=== PATIENT | female | born 1985 | race Caucasian/White ===

== ENCOUNTER 2017-09-25 13:35 | Emergency (ER) | payer MEDICAID ==
[2017-09-25] MEDS ORDERED: DIPHENHYDRAMINE HCL 50 MG/ML VIAL IV ONE (14:16)
[2017-09-25] MEDS ORDERED: PROCHLORPERAZINE EDISYLATE INJ 10 MG/2 ML VIAL IV ONE (14:16)
[2017-09-25] MEDS ORDERED: ONDANSETRON HCL INJ/PF 4 MG/2 ML SDV IV ONE (14:16)
[2017-09-25] MEDS ORDERED: NORMAL SALINE 1000 ML 1,000 ML IV ONE (14:17)
--- NOTE | 2017-09-25 14:21 | ER Document Report ---
ED Medical Screen (RME) - General Mode of Arrival: Ambulatory Information source: Patient TRAVEL OUTSIDE OF THE [place] IN LAST 30 DAYS: No <SOBEIDA CATALAN - Last Filed: 09/25/17 14:42> <VINH DUMONT - Last Filed: 09/25/17 19:29> - General Chief Complaint: High Blood Pressure Stated Complaint: BLOOD PRESSURE ISSUE Time Seen by Provider: 09/25/17 14:11 Notes: Patient is a 32 year old female presenting to the emergency department complaining of dizziness onset last night. Patient states she was feeling very dizzy last night and fell down repeatedly so she decided to check her blood pressure which she found to be high. Patient states she contiuned to check her blood pressure 2 more times throughout the night and found it to be high. Patient states she still feels dizzy with associated symptoms of headaches, diarrhea, nausea, shaking, and light headedness. I have greeted and performed a rapid initial assessment of this patient. A comprehensive ED assessment and evaluation of the patient, analysis of test results and completion of the medical decision making process will be conducted by additional ED providers. (SOBEIDA CATALAN) - Related Data Allergies/Adverse Reactions: No Known Allergies Allergy (Unverified 04/03/16 09:08) Home Medications: Current Home Medications Alprazolam [Xanax 0.25 mg Tablet] 1 tab PO BID PRN 09/25/17 [History] Dulaglutide [Trulicity] 1 dose SQ Q7D 09/25/17 [History] Eszopiclone [Lunesta] 1 tab PO DAILY 09/25/17 [History] Insulin Aspart Prot/Insuln Asp [Novolog Mix 70-30 Flexpen Syrn] 10 units SQ DAILY 09/25/17 [History] Lisinopril 1 tab PO DAILY 09/25/17 [History] Trazodone HCl [Desyrel] 1 tab PO BID 09/25/17 [History] Past Medical History - General Information source: Patient - Social History Frequency of alcohol use: None Drug Abuse: None - Past Medical History Cardiac Medical History: Reports: Hx Hypertension Pulmonary Medical History: Endocrine Medical History: Reports: Hx Diabetes Mellitus Type 2 Psychiatric Medical History: Reports: Hx Bipolar Disorder, Hx Depression - Immunizations Hx Diphtheria, Pertussis, Tetanus Vaccination: Yes <SOBEIDA CATALAN - Last Filed: 09/25/17 14:42> Physical Exam - General General appearance: Appears well, Alert In distress: None - HEENT Head: Normocephalic, Atraumatic Eyes: Normal Conjunctiva: Normal <SOBEIDA CATALAN - Last Filed: 09/25/17 14:42> - Vital signs Vitals: Temp Pulse BP Pulse Ox 98.8 F 108 H 161/104 H 99 09/25/17 13:41 09/25/17 13:41 09/25/17 13:41 09/25/17 13:41 Course <SOBEIDA CATALAN - Last Filed: 09/25/17 14:42> - Laboratory Result Diagrams: 09/25/17 14:38 09/25/17 14:38 <VINH DUMONT - Last Filed: 09/25/17 19:29> - Re-evaluation Re-evalutation: 09/25/17 19:29 I personally performed the services described in the documentation, reviewed and edited the documentation which was dictated to the scribe in my presence, and it accurately records my words and actions. (VINH DUMONT) - Vital Signs Vital signs: Temp Pulse Resp BP Pulse Ox 98.8 F 93 18 150/86 H 100 09/25/17 13:41 09/25/17 16:32 09/25/17 16:32 09/25/17 17:40 09/25/17 16:32 - Laboratory Laboratory results interpreted by me: 09/25/17 09/25/17 14:30 14:38 Chloride 108 H Creatinine 1.30 H Est GFR ( Amer) 57 L Est GFR (Non-Af Amer) 47 L Urine Protein >=500 H Urine Blood SMALL H Ur Leukocyte Esterase TRACE H Doctor's Discharge <HOSSEIN,TAMMORGAN - Last Filed: 09/25/17 14:42> <VINH DUMONT - Last Filed: 09/25/17 19:29> - Discharge Clinical Impression: Hypertension, Headache, Renal insufficiency Condition: Fair Disposition: HOME, SELF-CARE Instructions: High Blood Pressure ([facility]), High Blood Pressure, Requiring Treatment ([facility]), Kidney Failure ([facility]) Prescriptions: Amlodipine Besylate 10 mg PO DAILY #30 tab Referrals: DARIEL GARZA MD [Primary Care Provider] - Follow up as needed Scribe Documentation - Scribe Written by Scribe:: Eugene An, 09/25/2017 14:20 acting as scribe for :: Niraj <SOBEIDA CATALAN - Last Filed: 09/25/17 14:42>
[2017-09-25 14:56] LABS: ABSOLUTE BASOPHILS # (AUTO) 0.1 10^3/uL (0.0-0.2); ABSOLUTE EOSINOPHILS # (AUTO) 0.3 10^3/uL (0.0-0.6); ABSOLUTE LYMPHOCYTES (AUTO) 2.6 10^3/uL (0.5-4.7); ABSOLUTE MONOCYTES (AUTO) 0.3 10^3/uL (0.1-1.4); ABSOLUTE NEUT (AUTO) 3.4 10^3/uL (1.7-8.2); BASOPHILS % (AUTO) 1.3 % (0-2); EOSINOPHILS % (AUTO) 4.2 % (0-6); HEMATOCRIT 36.5 % (36.0-47.0); HEMOGLOBIN 12.5 g/dL (12.0-15.5); LYMPHOCYTES % (AUTO) 38.8 % (13-45); MEAN CORPUSCULAR HEMOGLOBIN 31.1 pg (27.0-33.4); MEAN CORPUSCULAR HGB CONC 34.1 g/dL (32.0-36.0); MEAN CORPUSCULAR VOLUME 91 fl (80-97); MONOCYTES % (AUTO) 4.8 % (3-13); PLATELET COUNT 313 10^3/uL (150-450); RED BLOOD COUNT 4.01 10^6/uL (3.72-5.28); RED CELL DISTRIBUTION WIDTH 13.9 % (11.5-14.0); SEGMENTED NEUTROPHILS % (AUTO) 50.9 % (42-78); TOTAL CELLS COUNTED % (AUTO) 100 %; WHITE BLOOD COUNT 6.7 10^3/uL (4.0-10.5)
--- NOTE | 2017-09-25 15:01 | RADIOLOGY REPORT (SQ) ---
EXAM DESCRIPTION: CT HEAD WITHOUT COMPLETED DATE/TIME: 09/25/2017 2:47 pm REASON FOR STUDY: headache, nausea COMPARISON: None. TECHNIQUE: Axial images acquired through the brain without intravenous contrast. Images reviewed wi th bone, brain and subdural windows. Images stored on PACS. All CT scanners at this facility use dose modulation, iterative reconstruction, and/or weight based d osing when appropriate to reduce radiation dose to as low as reasonably achievable (ALARA). [facility]: Dose Right [facility]: CareDose [facility]: Dose Right [facility]: Teradose 4D [facility]: Sonogenix RADIATION DOSE: CT Rad equipment meets quality standard of care and radiation dose reduction techniq ues were employed. CTDIvol: 64.6 mGy. DLP: 1163 mGy-cm. mGy. LIMITATIONS: None. FINDINGS: VENTRICLES: Normal size and contour. CEREBRUM: No masses. No hemorrhage. No midline shift. No evidence for acute infarction. Normal gra y/white matter differentiation. No areas of low density in the white matter. CEREBELLUM: No masses. No hemorrhage. No alteration of density. No evidence for acute infarction. EXTRAAXIAL SPACES: No fluid collections. No masses. ORBITS AND GLOBE: No intra- or extraconal masses. Normal contour of globe without masses. CALVARIUM: No fracture. PARANASAL SINUSES: No fluid or mucosal thickening. SOFT TISSUES: No mass or hematoma. OTHER: No other significant finding. IMPRESSION: NORMAL BRAIN CT WITHOUT CONTRAST. EVIDENCE OF ACUTE STROKE: NO. COMMENT: Quality ID # [id number]: Final reports with documentation of one or more dose reduction techniques (e.g., Automated exposure control, adjustment of the mA and/or kV according to patient size, use of iterative reconstruction technique) TECHNICAL DOCUMENTATION: JOB ID: [id number]- All Rights Reserved
[2017-09-25 15:06] LABS: AMORPHOUS SEDIMENT,URINE TRACE /HPF; APPEARANCE,URINE CLOUDY; BILIRUBIN,URINE NEGATIVE (NEGATIVE); COLOR,URINE YELLOW; GLUCOSE, URINE NEGATIVE (NEGATIVE); KETONES,URINE NEGATIVE (NEGATIVE); LEUKOCYTE ESTERASE,URINE TRACE (NEGATIVE); NITRITE,URINE NEGATIVE (NEGATIVE); PROTEIN,URINE >=500 mg/dL (NEGATIVE); URINE SPECIFIC GRAVITY 1.011; UROBILINOGEN,URINE NEGATIVE mg/dL (<2.0)
[2017-09-25] MEDS ORDERED: LORAZEPAM 1 MG TABLET PO ONE (15:10)
--- NOTE | 2017-09-25 15:10 | ER Document Report ---
ED General - General Chief Complaint: High Blood Pressure Stated Complaint: BLOOD PRESSURE ISSUE Time Seen by Provider: 09/25/17 14:11 Mode of Arrival: Ambulatory Information source: Patient Notes: 32 years old female presents today with elevated blood pressure, with a history of hypertension and diabetes, anxiety. She states since last Thursday she has been having these issues. Reason is that she heard a bad news and that has been troubling her and worrying and crying on and off. Feeling a little depressed but no suicidal ideation or homicidal ideation. Denies any constitutional symptoms denies any chest pain shortness of breath or wheezing. TRAVEL OUTSIDE OF THE [place] IN LAST 30 DAYS: No - Related Data Allergies/Adverse Reactions: No Known Allergies Allergy (Unverified 04/03/16 09:08) Home Medications: Current Home Medications Alprazolam [Xanax 0.25 mg Tablet] 1 tab PO BID PRN 09/25/17 [History] Dulaglutide [Trulicity] 1 dose SQ Q7D 09/25/17 [History] Eszopiclone [Lunesta] 1 tab PO DAILY 09/25/17 [History] Insulin Aspart Prot/Insuln Asp [Novolog Mix 70-30 Flexpen Syrn] 10 units SQ DAILY 09/25/17 [History] Lisinopril 1 tab PO DAILY 09/25/17 [History] Trazodone HCl [Desyrel] 1 tab PO BID 09/25/17 [History] Past Medical History - General Information source: Patient - Social History Smoking Status: Former Smoker Frequency of alcohol use: None Drug Abuse: None Family History: Reviewed & Not Pertinent, DM, Hyperlipidemia, Hypertension Patient has suicidal ideation: No Patient has homicidal ideation: No - Past Medical History Cardiac Medical History: Reports: Hx Hypertension Pulmonary Medical History: Endocrine Medical History: Reports: Hx Diabetes Mellitus Type 2 Renal/ Medical History: Denies: Hx Peritoneal Dialysis Psychiatric Medical History: Reports: Hx Bipolar Disorder, Hx Depression - Immunizations Hx Diphtheria, Pertussis, Tetanus Vaccination: Yes Review of Systems - Review of Systems Notes: REVIEW OF SYSTEMS: CONSTITUTIONAL : Denies fever, chills, or sweats. Denies recent illness. EENT: Denies eye, ear, throat, or mouth pain or symptoms. Denies nasal or sinus congestion or discharge. Denies throat, tongue, or mouth swelling or difficulty swallowing. CARDIOVASCULAR: Denies chest pain. Denies palpitations or racing or irregular heart beat. Denies ankle edema. RESPIRATORY: Denies cough, cold, or chest congestion. Denies shortness of breath, difficulty breathing, or wheezing. GASTROINTESTINAL: Denies abdominal pain or distention. Denies nausea, vomiting , or diarrhea. Denies blood in vomitus, stools, or per rectum. Denies black, tarry stools. Denies constipation. GENITOURINARY: Denies difficulty urinating, painful urination, burning, frequency, blood in urine, or discharge. FEMALE GENITOURINARY: Denies vaginal bleeding, heavy or abnormal periods, irregular periods. Denies vaginal discharge or odor. MUSCULOSKELETAL: Denies back or neck pain or stiffness. Denies joint pain or swelling. SKIN: Denies rash, lesions or sores. HEMATOLOGIC : Denies easy bruising or bleeding. LYMPHATIC: Denies swollen, enlarged glands. NEUROLOGICAL: Denies confusion or altered mental status. Denies passing out or loss of consciousness. Denies dizziness or lightheadedness. Denies headache. Denies weakness or paralysis or loss of use of either side. Denies problems with gait or speech. Denies sensory loss, numbness, or tingling. Denies seizures. PSYCHIATRIC: Denies anxiety or stress. Denies depression, suicidal ideation, or homicidal ideation. ALL OTHER SYSTEMS REVIEWED AND NEGATIVE. PHYSICAL EXAMINATION: GENERAL: Well-appearing, well-nourished and in no acute distress. HEAD: Atraumatic, normocephalic. EYES: Pupils equal round and reactive to light, extraocular movements intact, conjunctiva are normal. ENT: Nares patent, oropharynx clear without exudates. Moist mucous membranes. NECK: Normal range of motion, supple without lymphadenopathy LUNGS: Breath sounds clear to auscultation bilaterally and equal. No wheezes rales or rhonchi. HEART: Regular rate and rhythm without murmurs ABDOMEN: Soft, nontender, nondistended abdomen. No guarding, no rebound. No masses appreciated. Female : deferred Musculoskeletal: Normal range of motion, no pitting or edema. No cyanosis. NEUROLOGICAL: Cranial nerves grossly intact. Normal speech, normal gait. Normal sensory, motor exams PSYCH: Appears anxious, tearful, mild to moderate depression. SKIN: Warm, Dry, normal turgor, no rashes or lesions noted. Dictation was performed using [employer] voice recognition software Physical Exam - Vital signs Vitals: Temp Pulse BP Pulse Ox 98.8 F 108 H 161/104 H 99 09/25/17 13:41 09/25/17 13:41 09/25/17 13:41 09/25/17 13:41 Course - Re-evaluation Re-evalutation: 09/25/17 19:20 She was given clonidine with pressure has come down to 150/86. Given Lortab for the headache - Vital Signs Vital signs: Temp Pulse Resp BP Pulse Ox 98.8 F 93 18 150/86 H 100 09/25/17 13:41 09/25/17 16:32 09/25/17 16:32 09/25/17 17:40 09/25/17 16:32 - Laboratory Result Diagrams: 09/25/17 14:38 09/25/17 14:38 Laboratory results interpreted by me: 09/25/17 09/25/17 14:30 14:38 Chloride 108 H Creatinine 1.30 H Est GFR ( Amer) 57 L Est GFR (Non-Af Amer) 47 L Urine Protein >=500 H Urine Blood SMALL H Ur Leukocyte Esterase TRACE H Discharge - Discharge Clinical Impression: Renal insufficiency Hypertension Qualifiers: Hypertension type: essential hypertension Qualified Code(s): I10 - Essential ( primary) hypertension Headache Qualifiers: Headache type: tension-type Headache chronicity pattern: acute headache Intractability: not intractable Qualified Code(s): G44.209 - Tension-type headache, unspecified, not intractable Condition: Fair Disposition: HOME, SELF-CARE Instructions: High Blood Pressure ([facility]), High Blood Pressure, Requiring Treatment ([facility]), Kidney Failure ([facility]) Prescriptions: Amlodipine Besylate 10 mg PO DAILY #30 tab
[2017-09-25 15:15] LABS: ALANINE AMINOTRANSFERASE 45 U/L (9-52); ALBUMIN 3.9 g/dL (3.5-5.0); ALKALINE PHOSPHATASE 65 U/L (38-126); ANION GAP 11 (5-19); ASPARTATE AMINO TRANSFERASE 30 U/L (14-36); BILIRUBIN,DIRECT 0.2 mg/dL (0.0-0.4); BILIRUBIN,TOTAL 0.2 mg/dL (0.2-1.3); BLOOD UREA NITROGEN 8 mg/dL (7-20); CALCIUM 9.6 mg/dL (8.4-10.2); CARBON DIOXIDE 25 mmol/L (22-30); CHLORIDE 108 mmol/L (98-107); GLUCOSE 76 mg/dL (75-110); POTASSIUM 4.2 mmol/L (3.6-5.0); TOTAL PROTEIN 7.1 g/dL (6.3-8.2)
[2017-09-25] MEDS ORDERED: CLONIDINE HCL 0.2 MG TABLET PO ONE (15:34)
[2017-09-25] MEDS ORDERED: KETOROLAC TROMETHAMINE INJ/PF 30 MG/1 ML SDV IV ONE (17:50)
[2017-09-25 19:54] VITALS: BP 137/79
== END 2017-09-25 19:53 | disposition home or self-care (01) ==
LOC: ER 13:35
DX: I10 Essential (primary) hypertension (principal); G44.209 Tension-type headache, unspecified, not intractable; E11.9 Type 2 diabetes mellitus without complications; N28.9 Disorder of kidney and ureter, unspecified; F32.9 Major depressive disorder, single episode, unspecified; Z87.891 Personal history of nicotine dependence
CPT/HCPCS: 99284; 96361; 96374; 36415; 85025; 80053; 81001; 70450; J3490; J1885; J7030

== ENCOUNTER → 2017-12-24 | Day surgery (SDC) | payer MEDICAID ==
--- NOTE | 2017-12-24 14:26 | RADIOLOGY REPORT (SQ) ---
EXAM DESCRIPTION: ARTHRO SHOULDER; FLUORO/NEEDLE PLACEMENT COMPLETED DATE/TIME: 12/24/2017 2:09 pm REASON FOR STUDY: R SHOULDER PAIN M25.511 PAIN IN RIGHT SHOULDER COMPARISON: None. FLUOROSCOPY TIME: 10 seconds 2 digital radiographic images saved to PACS. LIMITATIONS: None. PROCEDURE: Procedure, risks, benefits and alternatives explained to patient who then gave written co nsent. The posterior right shoulder was marked and a time out was called for correct procedure verifi cation. Posterior entry site marked using fluoroscopic guidance. Shoulder prepped and draped using sterile technique. Local anesthesia achieved using 9 mL of 1% lidocaine injection. 22 spinal needle introduced into the joint space under direct fluoroscopic visualization. Non-ionic contrast instille d to confirm intra-articular position. Dilute gadolinium solution then injected. Needle removed and entry site covered with sterile bandage. No immediate complications noted. TECHNIQUE: Digital images acquired during fluoroscopy and stored on PACS. Patient immediately take n to the MR suite for additional imaging. INJECTION LOCATION: Posterior right shoulder. CONTRAST TYPE AND AMOUNT: 0.5 mL of Isovue-300 was injected to confirm intra-articular needle placeme nt, followed by 8 mL of dilute gadolinium for MR arthrogram IMPRESSION: SUCCESSFUL NEEDLE PLACEMENT AND INJECTION FOR RIGHT SHOULDER MR ARTHROGRAM USING POSTERI OR APPROACH. COMMENT: Quality ID 145: Final reports for procedures using fluoroscopy that document radiation exp osure indices, or exposure time and number of fluorographic images (if radiation exposure indices are not available) TECHNICAL DOCUMENTATION: JOB ID: [id number] [employer]- All Rights Reserved Reading location - IP/workstation name: [email or web address]
--- NOTE | 2017-12-24 14:26 | RADIOLOGY REPORT (SQ) ---
EXAM DESCRIPTION: ARTHRO SHOULDER; FLUORO/NEEDLE PLACEMENT COMPLETED DATE/TIME: 12/24/2017 2:09 pm REASON FOR STUDY: R SHOULDER PAIN M25.511 PAIN IN RIGHT SHOULDER COMPARISON: None. FLUOROSCOPY TIME: 10 seconds 2 digital radiographic images saved to PACS. LIMITATIONS: None. PROCEDURE: Procedure, risks, benefits and alternatives explained to patient who then gave written co nsent. The posterior right shoulder was marked and a time out was called for correct procedure verifi cation. Posterior entry site marked using fluoroscopic guidance. Shoulder prepped and draped using sterile technique. Local anesthesia achieved using 9 mL of 1% lidocaine injection. 22 spinal needle introduced into the joint space under direct fluoroscopic visualization. Non-ionic contrast instille d to confirm intra-articular position. Dilute gadolinium solution then injected. Needle removed and entry site covered with sterile bandage. No immediate complications noted. TECHNIQUE: Digital images acquired during fluoroscopy and stored on PACS. Patient immediately take n to the MR suite for additional imaging. INJECTION LOCATION: Posterior right shoulder. CONTRAST TYPE AND AMOUNT: 0.5 mL of Isovue-300 was injected to confirm intra-articular needle placeme nt, followed by 8 mL of dilute gadolinium for MR arthrogram IMPRESSION: SUCCESSFUL NEEDLE PLACEMENT AND INJECTION FOR RIGHT SHOULDER MR ARTHROGRAM USING POSTERI OR APPROACH. COMMENT: Quality ID 145: Final reports for procedures using fluoroscopy that document radiation exp osure indices, or exposure time and number of fluorographic images (if radiation exposure indices are not available) TECHNICAL DOCUMENTATION: JOB ID: [id number] [employer]- All Rights Reserved Reading location - IP/workstation name: [email or web address]
--- NOTE | 2017-12-24 15:41 | RADIOLOGY REPORT (SQ) ---
EXAM DESCRIPTION: MRI RT UPPER JOINT WITH COMPLETED DATE/TIME: 12/24/2017 2:43 pm REASON FOR STUDY: R SHOULDER PAIN M25.511 PAIN IN RIGHT SHOULDER COMPARISON: None. TECHNIQUE: Right shoulder images acquired and stored on PACS. Oblique coronal, oblique sagittal, and axial imaging to include fat sensitive sequences as T1, water sensitive sequences as FST2/STIR, and contrast sensitive sequences as FST1. LIMITATIONS: Mixed injection, intra-articular and intramuscular along the infraspinatus muscle. FINDINGS: JOINT DISTENTION: Adequate distention for interpretation. No leakage of contrast into the subacromial/subdeltoid bursa. BONE MARROW AND CORTEX: Normal. No significant osteophytes. No edema or defects. AC JOINT: Type 3 acromion. No significant AC joint arthropathy. However, there is mild narrowing of the subacromial space, best shown on coronal image 10 and sagittal image 6 GLENOHUMERAL JOINT: No subluxation or dislocation. No focal chondral defects or reactive bone changes . ROTATOR CUFF: Intact without significant tendinopathy, partial or full-thickness tears. No peritendin itis. LABRUM AND BICEPS LABRAL COMPLEX: Normal signal in the rotator interval without tear of the superior glenohumeral ligament. Superior labrum, intra-articular long head biceps intact. Distal biceps in no rmal anatomic location in bicipital groove. No paralabral cysts. INFERIOR LABRAL COMPLEX: Bony glenoid and labrum intact. IGHL intact without thickening or tear. No p aralabral cysts. ADJACENT SOFT TISSUES: No masses or nodes. OTHER: No other significant finding. IMPRESSION: Downward sloping type 3 acromion mildly narrowing the subacromial space. No evidence of rotator cuff tear or labral tear. TECHNICAL DOCUMENTATION: JOB ID: [id number] [employer]- All Rights Reserved Reading location - IP/workstation name: [email or web address]
== END ==
LOC: RAD 13:33
PROVIDERS: ATTEND Orthopaedic Surgery
PROC: BP08ZZZ Plain Radiography of Right Shoulder (ICD-10-PCS; principal; 2017-12-24)
DX: M25.511 Pain in right shoulder (principal)
CPT/HCPCS: 73222; 73040; 77002; A9576

== ENCOUNTER 2018-12-05 08:35 | Emergency (ER) | payer MEDICAID ==
[2018-12-05] MEDS ORDERED: IPRATROPIUM/ALBUTEROL 0.5-2.5 MG/3 ML AMPUL NEB ONE (10:00)
--- NOTE | 2018-12-05 10:27 | RADIOLOGY REPORT (SQ) ---
EXAM DESCRIPTION: CHEST 2 VIEWS COMPLETED DATE/TIME: 12/05/2018 10:13 am REASON FOR STUDY: sob COMPARISON: None. TECHNIQUE: Frontal and lateral radiographic views of the chest acquired. NUMBER OF VIEWS: Two view. LIMITATIONS: None. FINDINGS: LUNGS AND PLEURA: No opacities, masses or pneumothorax. No pleural effusion. MEDIASTINUM AND HILAR STRUCTURES: No masses or contour abnormalities. HEART AND VASCULAR STRUCTURES: Heart normal size. No evidence for failure. BONES: No acute findings. HARDWARE: None in the chest. OTHER: No other significant finding. IMPRESSION: NO SIGNIFICANT RADIOGRAPHIC FINDING IN THE CHEST. TECHNICAL DOCUMENTATION: JOB ID: [id number] [employer]- All Rights Reserved Reading location - IP/workstation name: [email or web address]
[2018-12-05 11:11] LABS: ABSOLUTE EOSINOPHILS # (AUTO) 0.1 10^3/uL (0.0-0.6); ABSOLUTE LYMPHOCYTES (AUTO) 2.5 10^3/uL (0.5-4.7); ABSOLUTE MONOCYTES (AUTO) 0.4 10^3/uL (0.1-1.4); ABSOLUTE NEUT (AUTO) 2.5 10^3/uL (1.7-8.2); BASOPHILS % (AUTO) 0.7 % (0-2); EOSINOPHILS % (AUTO) 2.6 % (0-6); HEMATOCRIT 31.6 % (36.0-47.0); LYMPHOCYTES % (AUTO) 44.9 % (13-45); MEAN CORPUSCULAR HEMOGLOBIN 32.7 pg (27.0-33.4); MEAN CORPUSCULAR HGB CONC 34.8 g/dL (32.0-36.0); MEAN CORPUSCULAR VOLUME 94 fl (80-97); MONOCYTES % (AUTO) 6.8 % (3-13); PLATELET COUNT 195 10^3/uL (150-450); RED BLOOD COUNT 3.36 10^6/uL (3.72-5.28); RED CELL DISTRIBUTION WIDTH 13.3 % (11.5-14.0); TOTAL CELLS COUNTED % (AUTO) 100 %; WHITE BLOOD COUNT 5.6 10^3/uL (4.0-10.5)
[2018-12-05 11:24] LABS: ANION GAP 8 (5-19); BLOOD UREA NITROGEN 16 mg/dL (7-20); CALCIUM 9.3 mg/dL (8.4-10.2); CARBON DIOXIDE 26 mmol/L (22-30); CHLORIDE 104 mmol/L (98-107); GLUCOSE 205 mg/dL (75-110); POTASSIUM 4.2 mmol/L (3.6-5.0); SODIUM 137.6 mmol/L (137-145)
[2018-12-05] MEDS ORDERED: ALBUTEROL SULFATE HFA (90 MCG/PUFF) 8 GM MDI (1 MDI/ER DISP) IH ONE (11:40)
--- NOTE | 2018-12-05 11:41 | ER Document Report ---
ED General - General Chief Complaint: Shortness Of Breath Stated Complaint: SHORTNESS OF BREATH, CHEST PAIN Time Seen by Provider: 12/05/18 09:31 Primary Care Provider: DARIEL GARZA MD [Primary Care Provider] - Follow up in 1 week TRAVEL OUTSIDE OF THE [place] IN LAST 30 DAYS: No - HPI Patient complains to provider of: Shortness of breath Notes: Patient coming in for evaluation of shortness of breath. Patient has a history of hypertension diabetes. Patient states that she was lifting a bag that had mold in it states since that time she has been short of breath. Patient denies any immunocompromise states. Patient denies any fevers chills nausea vomiting diarrhea. Denies any abdominal pain . Patient resting company upon my evaluation. - Related Data Allergies/Adverse Reactions: No Known Allergies Allergy (Unverified 04/03/16 09:08) Past Medical History - Social History Smoking Status: Never Smoker Chew tobacco use (# tins/day): No Frequency of alcohol use: Rare Drug Abuse: None Family History: Reviewed & Not Pertinent, DM, Hyperlipidemia, Hypertension Patient has suicidal ideation: No Patient has homicidal ideation: No - Past Medical History Cardiac Medical History: Reports: Hx Hypertension Pulmonary Medical History: Endocrine Medical History: Reports: Hx Diabetes Mellitus Type 2 Renal/ Medical History: Denies: Hx Peritoneal Dialysis Psychiatric Medical History: Reports: Hx Bipolar Disorder, Hx Depression - Immunizations Hx Diphtheria, Pertussis, Tetanus Vaccination: Yes Review of Systems - Review of Systems Constitutional: No symptoms reported EENT: No symptoms reported Cardiovascular: No symptoms reported Respiratory: Short of breath Gastrointestinal: No symptoms reported Genitourinary: No symptoms reported Female Genitourinary: No symptoms reported Musculoskeletal: No symptoms reported Skin: No symptoms reported Hematologic/Lymphatic: No symptoms reported Neurological/Psychological: No symptoms reported -: Yes All other systems reviewed and negative Physical Exam - Vital signs Vitals: Temp Pulse Resp BP Pulse Ox 98.7 F 98 20 158/96 H 100 12/05/18 08:52 12/05/18 08:52 12/05/18 08:52 12/05/18 08:52 12/05/18 08:52 Interpretation: Normal - General General appearance: Appears well, Alert - HEENT Head: Normocephalic, Atraumatic Eyes: Normal Pupils: PERRL - Respiratory Respiratory status: No respiratory distress Chest status: Nontender Breath sounds: Normal Chest palpation: Normal - Cardiovascular Rhythm: Regular Heart sounds: Normal auscultation Murmur: No - Abdominal Inspection: Normal Distension: No distension Bowel sounds: Normal Tenderness: Nontender Organomegaly: No organomegaly - Back Back: Normal, Nontender - Extremities General upper extremity: Normal inspection, Nontender, Normal color, Normal ROM, Normal temperature General lower extremity: Normal inspection, Nontender, Normal color, Normal ROM, Normal temperature, Normal weight bearing. No: Tk's sign - Neurological Neuro grossly intact: Yes Cognition: Normal Orientation: AAOx4 Cristian Coma Scale Eye Opening: Spontaneous Cristian Coma Scale Verbal: Oriented [place] Coma Scale Motor: Obeys Commands [place] Coma Scale Total: 15 Speech: Normal Motor strength normal: LUE, RUE, LLE, RLE Sensory: Normal - Psychological Associated symptoms: Normal affect, Normal mood - Skin Skin Temperature: Warm Skin Moisture: Dry Skin Color: Normal Course - Re-evaluation Re-evalutation: 12/05/18 13:31 Patient feeling better after breathing treatment. Patient was discharged home with bronchodilator therapy. - Vital Signs Vital signs: Temp Pulse Resp BP Pulse Ox 98.5 F 90 18 159/90 H 100 12/05/18 11:59 12/05/18 11:59 12/05/18 11:59 12/05/18 11:59 12/05/18 11:59 - Laboratory Result Diagrams: 12/05/18 10:59 12/05/18 10:59 Laboratory results interpreted by me: 12/05/18 12/05/18 10:59 10:59 RBC 3.36 L Hgb 11.0 L Hct 31.6 L Est GFR (Non-Af Amer) 55 L Glucose 205 H Discharge - Discharge Clinical Impression: Reactive airway disease Qualifiers: Asthma severity: mild Asthma persistence: unspecified Qualified Code(s): J45.909 - Unspecified asthma, uncomplicated Condition: Good Disposition: HOME, SELF-CARE Instructions: Reactive Airway Disease ([facility]) Additional Instructions: Please follow-up with your primary care physician. Your chest x-ray laboratory studies not show any acute process at this time. I recommend to avoid excessive dust or mold exposure. Please use the inhaler that we gave you here in ER 2 puffs every 4 hours as needed for shortness of breath. Forms: Return to Work Referrals: DARIEL GARZA MD [Primary Care Provider] - Follow up in 1 week
[2018-12-05 12:01] VITALS: BP 159/90
--- NOTE | 2018-12-05 12:26 | EKG REPORT ---
SEVERITY:- ABNORMAL ECG - SINUS RHYTHM ABNORMAL Q SUGGESTS ANTERIOR INFARCT VERSUS LEAD PLACEMENT : Confirmed by: Elif Kowalski MD 05-Dec-2018 12:25:42
== END 2018-12-05 12:01 | disposition home or self-care (01) ==
LOC: ER 08:35
DX: J45.909 Unspecified asthma, uncomplicated (principal); R06.02 Shortness of breath; I10 Essential (primary) hypertension; E11.9 Type 2 diabetes mellitus without complications
CPT/HCPCS: 93005; 94640; 99285; 36415; 84703; 85025; 80048; 84484; 71046; 93010; J3490; J7620

== ENCOUNTER 2019-08-04 00:12 | Inpatient (IN) | payer MEDICAID ==
[2019-08-04] MEDS ORDERED: TRANEXAMIC ACID INJ/PF 1,000 MG/10 ML SDV ONE (01:50)
[2019-08-04] MEDS ORDERED: ONDANSETRON HCL INJ/PF 4 MG/2 ML SDV ONE ×2 (01:54→13:43)
[2019-08-04] MEDS ORDERED: ONDANSETRON HCL INJ/PF 4 MG/2 ML SDV IV ONE (01:58)
[2019-08-04 02:07] LABS: ABSOLUTE BASOPHILS # (AUTO) 0.1 10^3/uL (0.0-0.2); ABSOLUTE LYMPHOCYTES (AUTO) 1.8 10^3/uL (0.5-4.7); ABSOLUTE MONOCYTES (AUTO) 0.4 10^3/uL (0.1-1.4); ABSOLUTE NEUT (AUTO) 8.7 10^3/uL (1.7-8.2); BASOPHILS % (AUTO) 0.7 % (0-2); EOSINOPHILS % (AUTO) 0.1 % (0-6); HEMATOCRIT 37.1 % (36.0-47.0); HEMOGLOBIN 12.6 g/dL (12.0-15.5); LYMPHOCYTES % (AUTO) 16.8 % (13-45); MEAN CORPUSCULAR HEMOGLOBIN 31.8 pg (27.0-33.4); MEAN CORPUSCULAR HGB CONC 34.1 g/dL (32.0-36.0); MEAN CORPUSCULAR VOLUME 93 fl (80-97); MONOCYTES % (AUTO) 3.4 % (3-13); PLATELET COUNT 444 10^3/uL (150-450); RED BLOOD COUNT 3.98 10^6/uL (3.72-5.28); RED CELL DISTRIBUTION WIDTH 14.3 % (11.5-14.0); TOTAL CELLS COUNTED % (AUTO) 100 %
[2019-08-04 02:27] LABS: ALBUMIN 4.8 g/dL (3.5-5.0); ALKALINE PHOSPHATASE 66 U/L (38-126); ANION GAP 16 (5-19); ASPARTATE AMINO TRANSFERASE 16 U/L (14-36); BILIRUBIN,DIRECT 0.1 mg/dL (0.0-0.4); BILIRUBIN,TOTAL 0.2 mg/dL (0.2-1.3); BLOOD UREA NITROGEN 53 mg/dL (7-20); CALCIUM 9.7 mg/dL (8.4-10.2); CARBON DIOXIDE 20 mmol/L (22-30); CHLORIDE 106 mmol/L (98-107); GLUCOSE 237 mg/dL (75-110); POTASSIUM 5.7 mmol/L (3.6-5.0); TOTAL PROTEIN 8.5 g/dL (6.3-8.2)
[2019-08-04] MEDS ORDERED: PROPOFOL INJ 200 MG/20 ML VIAL IV ONE (03:24)
[2019-08-04] MEDS ORDERED: LIDOCAINE 2% INJ-PF (20 MG/ML) 10 ML AMPUL ONE (03:24)
[2019-08-04] MEDS ORDERED: EPHEDRINE SULFATE INJ 50 MG/1 ML AMPULE ONE (03:24)
[2019-08-04] MEDS ORDERED: FENTANYL CITRATE INJ/PF 100 MCG/2 ML AMPUL ONE ×2 (03:24→04:24)
[2019-08-04] MEDS ORDERED: MIDAZOLAM 2 MG/2 ML INJ ONE (03:24)
--- NOTE | 2019-08-04 03:27 | ER Document Report ---
ED General - General Chief Complaint: Post Surgical Bleeding Stated Complaint: VOMITING BLOOD Time Seen by Provider: 08/04/19 02:11 Primary Care Provider: SAMEER BANERJEE FNP-C [Primary Care Provider] - Follow up as needed TRAVEL OUTSIDE OF THE [place] IN LAST 30 DAYS: No - Related Data Allergies/Adverse Reactions: No Known Allergies Allergy (Verified 08/04/19 00:23) Past Medical History - Social History Smoking Status: Former Smoker Frequency of alcohol use: Occasional Family History: Reviewed & Not Pertinent, DM, Hyperlipidemia, Hypertension Patient has suicidal ideation: No Patient has homicidal ideation: No - Past Medical History Cardiac Medical History: Reports: Hx Hypertension Pulmonary Medical History: Endocrine Medical History: Reports: Hx Diabetes Mellitus Type 2 Renal/ Medical History: Denies: Hx Peritoneal Dialysis Psychiatric Medical History: Reports: Hx Bipolar Disorder, Hx Depression Past Surgical History: Reports: Hx Gynecologic Surgery - D&C, Hx Tonsillectomy - Immunizations Hx Diphtheria, Pertussis, Tetanus Vaccination: Yes Physical Exam - Vital signs Vitals: Temp Pulse Resp BP Pulse Ox 98.3 F 92 20 137/83 H 99 08/04/19 00:19 08/04/19 00:19 08/04/19 00:19 08/04/19 00:19 08/04/19 00:19 Course - Vital Signs Vital signs: Temp Pulse Resp BP Pulse Ox 97.3 F 125 H 18 106/77 99 08/04/19 03:21 08/04/19 03:21 08/04/19 03:21 08/04/19 03:21 08/04/19 03:21 - Laboratory Result Diagrams: 08/04/19 01:57 08/04/19 01:57 Laboratory results interpreted by me: 08/04/19 08/04/19 01:57 01:57 WBC 11.0 H RDW 14.3 H Absolute Neuts (auto) 8.7 H Seg Neutrophils % 79.0 H Potassium 5.7 H Carbon Dioxide 20 L BUN 53 H Creatinine 2.86 H Est GFR ( Amer) 23 L Est GFR (MDRD) Non-Af 19 L Glucose 237 H Total Protein 8.5 H Discharge - Discharge Referrals: SAMEER BANERJEE FNP-C [Primary Care Provider] - Follow up as needed
[2019-08-04] MEDS ORDERED: DEXTROSE 40% GEL 15 GM TUBE PO PRN ×4 (03:59→04:49)
[2019-08-04] MEDS ORDERED: GLUCAGON,HUMAN RECOMB 1 MG INJ IM PRN ×2 (03:59→04:49)
[2019-08-04] MEDS ORDERED: DEXTROSE 50%-WATER 25 GM/50 ML DISP.SYRIN IV PRN ×4 (03:59→04:49)
[2019-08-04] MEDS ORDERED: INSULIN REG, HUMAN 100 UNIT/ML 3 ML VIAL (PYX) IV ONE (04:00)
[2019-08-04] MEDS ORDERED: INSULIN LISPRO 100 UNIT/ML 3 ML VIAL SUBCUT SCH (04:00)
[2019-08-04] MEDS ORDERED: NORMAL SALINE 1000 ML 1,000 ML IV PRN (04:15)
[2019-08-04] MEDS ORDERED: ONDANSETRON HCL INJ/PF 4 MG/2 ML SDV IV PRN (04:18)
[2019-08-04] MEDS ORDERED: PROMETHAZINE HCL INJ 25 MG/1 ML VIAL IV PRN ×2 (04:18)
[2019-08-04] MEDS ORDERED: DIPHENHYDRAMINE HCL 50 MG/ML VIAL IV PRN (04:18)
[2019-08-04] MEDS ORDERED: FENTANYL CITRATE INJ/PF 100 MCG/2 ML AMPUL IV PRN ×3 (04:18)
[2019-08-04] MEDS ORDERED: MEPERIDINE HCL/PF INJ 25 MG/1 ML DISP.SYRIN IV PRN (04:18)
[2019-08-04 04:38] LABS: ABSOLUTE BASOPHILS # (AUTO) 0.1 10^3/uL (0.0-0.2); ABSOLUTE LYMPHOCYTES (AUTO) 2.8 10^3/uL (0.5-4.7); ABSOLUTE MONOCYTES (AUTO) 0.7 10^3/uL (0.1-1.4); ABSOLUTE NEUT (AUTO) 8.8 10^3/uL (1.7-8.2); BASOPHILS % (AUTO) 0.6 % (0-2); EOSINOPHILS % (AUTO) 0.1 % (0-6); HEMATOCRIT 30.6 % (36.0-47.0); LYMPHOCYTES % (AUTO) 22.7 % (13-45); MEAN CORPUSCULAR HEMOGLOBIN 30.7 pg (27.0-33.4); MEAN CORPUSCULAR HGB CONC 32.9 g/dL (32.0-36.0); MEAN CORPUSCULAR VOLUME 93 fl (80-97); MONOCYTES % (AUTO) 5.5 % (3-13); PLATELET COUNT 425 10^3/uL (150-450); RED BLOOD COUNT 3.28 10^6/uL (3.72-5.28); RED CELL DISTRIBUTION WIDTH 14.4 % (11.5-14.0); SEGMENTED NEUTROPHILS % (AUTO) 71.1 % (42-78); TOTAL CELLS COUNTED % (AUTO) 100 %; WHITE BLOOD COUNT 12.4 10^3/uL (4.0-10.5)
[2019-08-04 04:39] LABS: HEMOGLOBIN 10.1 g/dL (12.0-15.5)
[2019-08-04] MEDS ORDERED: LORAZEPAM INJ 2 MG/1 ML VIAL IV ONE ×2 (04:48→05:05)
[2019-08-04] MEDS ORDERED: IPRATROPIUM/ALBUTEROL 0.5-2.5 MG/3 ML AMPUL NEB PRN (04:49)
[2019-08-04] MEDS ORDERED: LORAZEPAM INJ 2 MG/1 ML VIAL ONE (04:50)
[2019-08-04] MEDS ORDERED: INSULIN GLARGINE,HUM.REC.ANLOG 1,000 UNIT/10 ML VIAL SUBCUT ONE (04:53)
[2019-08-04] MEDS ORDERED: METOPROLOL TARTRATE PF/INJ 5 MG/5 ML SDV IV PRN (04:53)
[2019-08-04] MEDS ORDERED: LORAZEPAM INJ 2 MG/1 ML VIAL IV PRN (04:53)
[2019-08-04] MEDS ORDERED: LABETALOL HCL INJ 20 MG/4 ML DISP.SYRIN IV PRN (04:56)
[2019-08-04] MEDS ORDERED: LABETALOL HCL INJ 20 MG/4 ML DISP.SYRIN IV ONE ×2 (04:57→05:10)
[2019-08-04 05:12] LABS: ANION GAP 13 (5-19); BLOOD UREA NITROGEN 51 mg/dL (7-20); CALCIUM 8.8 mg/dL (8.4-10.2); CARBON DIOXIDE 15 mmol/L (22-30); CHLORIDE 112 mmol/L (98-107); GLUCOSE 280 mg/dL (75-110)
[2019-08-04 05:16] LABS: POTASSIUM 6.4 mmol/L (3.6-5.0)
[2019-08-04] MEDS ORDERED: INSULIN GLARGINE,HUM.REC.ANLOG 1,000 UNIT/10 ML VIAL (PYX) SUBCUT ONE (05:37)
[2019-08-04] MEDS ORDERED: INSULIN REG, HUMAN 100 UNIT/ML 3 ML VIAL (PYX) ONE (05:41)
[2019-08-04] MEDS ORDERED: INSULIN, REGULAR 100 UNIT/100 ML NORMAL SALINE IV PRN ×2 (06:00)
[2019-08-04] MEDS ORDERED: INFLUENZA QUAD (6MOS+) 2019-20 VAC 0.5 ML SYR IM ONE (06:15)
--- NOTE | 2019-08-04 06:17 | PDOC H&P ---
History of Present Illness Admission Date/PCP: 08/04/19 05:11 Patient complains of: Vomiting blood History of Present Illness: LUZMARIA MENDOZA is a 34 year old female with a past medical history of bipolar, tobacco, hypertension, dyslipidemia, diabetes and tonsillectomy July 25. She presents 30 minutes after the onset of coughing blood which she estimated a blood loss of 4 cups. In the emergency room ENT Dr. Matthews is consulted. She is taken to the OR where hemostasis is achieved and she is transferred to the hospitalist for ICU admission. Work-up otherwise reveals acute anemia, acute renal failure diabetic ketoacidosis and hyperkalemia. She is seen in the ICU protecting her airway but heavily sedated unable to answer questions. Past Medical History Cardiac Medical History: Reports: Hypertension Pulmonary Medical History: Endocrine Medical History: Reports: Diabetes Mellitus Type 2 Psychiatric Medical History: Reports: Bipolar Disorder, Depression Hematology: Reports: Anemia Past Surgical History Past Surgical History: Reports: Tonsillectomy Social History Information Source: Emergency Med Personnel, [facility] Records Smoking Status: Former Smoker Frequency of Alcohol Use: None - Advance Directive Resuscitation Status: Full Code Family History Family History: DM, Hyperlipidemia, Hypertension, Other - Unobtainable Parental Family History Reviewed: No - Unobtainable Children Family History Reviewed: No - Unobtainable Sibling(s) Family History Reviewed.: No - Unobtainable Medication/Allergy Home Medications: Acyclovir [Zovirax 200 mg Capsule] 200 mg PO DAILY 04/03/16 Insulin Glargine,Hum.rec.anlog [Lantus Insulin 100 Unit/1 ml 10 ml] 80 unit SUBCUT DAILY 04/03/16 Prazosin HCl 5 mg PO DAILY 04/03/16 Alprazolam [Xanax 0.25 mg Tablet] 1 tab PO BID PRN 09/25/17 Amlodipine Besylate 10 mg PO DAILY #30 tab 09/25/17 Dulaglutide [Trulicity] 1 dose SQ Q7D 09/25/17 Eszopiclone [Lunesta] 1 tab PO DAILY 09/25/17 Insulin Aspart Prot/Insuln Asp [Novolog Mix 70-30 Flexpen Syrn] 10 units SQ DAILY 09/25/17 Lisinopril 1 tab PO DAILY 09/25/17 Trazodone HCl [Desyrel] 1 tab PO BID 09/25/17 Allergies/Adverse Reactions: No Known Allergies Allergy (Verified 08/04/19 00:23) Review of Systems ROS unobtainable: Due to mental status - Postop sedation Physical Exam Vital Signs: Temp Pulse Resp BP Pulse Ox 97.3 F 125 H 18 106/77 99 08/04/19 03:21 08/04/19 03:21 08/04/19 03:21 08/04/19 03:21 08/04/19 03:21 Intake & Output 08/02/19 08/03/19 08/04/19 11:59 11:59 11:59 Weight 77.1 kg General appearance: PRESENT: mild distress, obese, well-developed, well- nourished Head exam: PRESENT: atraumatic, normocephalic Eye exam: PRESENT: conjunctiva pink, EOMI, PERRLA. ABSENT: scleral icterus Ear exam: PRESENT: normal external ear exam Mouth exam: PRESENT: dry mucosa, tongue midline Neck exam: ABSENT: carotid bruit, JVD, lymphadenopathy, thyromegaly Respiratory exam: PRESENT: decreased breath sounds, prolonged expiratory phas, tachypnea. ABSENT: rales, rhonchi, wheezes Cardiovascular exam: PRESENT: RRR, tachycardia. ABSENT: diastolic murmur, rubs, systolic murmur Pulses: PRESENT: normal dorsalis pedis pul Vascular exam: PRESENT: normal capillary refill GI/Abdominal exam: PRESENT: normal bowel sounds, soft. ABSENT: distended, guarding, mass, organolmegaly, rebound, tenderness Rectal exam: PRESENT: deferred Extremities exam: PRESENT: full ROM. ABSENT: calf tenderness, clubbing, pedal edema Neurological exam: PRESENT: alert, altered, awake, oriented to person, oriented to place, oriented to time, oriented to situation, CN II-XII grossly intact. ABSENT: motor sensory deficit Psychiatric exam: PRESENT: appropriate affect, normal mood. ABSENT: homicidal ideation, suicidal ideation Skin exam: PRESENT: dry, intact, warm. ABSENT: cyanosis, rash Results Laboratory Results: 08/04/19 04:23 08/04/19 04:23 08/04/19 08/04/19 08/04/19 01:57 01:57 01:57 WBC 11.0 H RBC 3.98 Hgb 12.6 Hct 37.1 MCV 93 MCH 31.8 MCHC 34.1 RDW 14.3 H Plt Count 444 Seg Neutrophils % 79.0 H Sodium 142.1 Potassium 5.7 H Chloride 106 Carbon Dioxide 20 L Anion Gap 16 BUN 53 H Creatinine 2.86 H Est GFR ( Amer) 23 L Glucose 237 H Calcium 9.7 Total Bilirubin 0.2 AST 16 Alkaline Phosphatase 66 Total Protein 8.5 H Albumin 4.8 Serum HCG, Qual NEGATIVE Blood Type Antibody Screen 08/04/19 08/04/19 08/04/19 01:57 04:23 04:23 WBC 12.4 H RBC 3.28 L Hgb 10.1 L D Hct 30.6 L MCV 93 MCH 30.7 MCHC 32.9 RDW 14.4 H Plt Count 425 Seg Neutrophils % 71.1 Sodium 139.7 Potassium 6.4 H* Chloride 112 H Carbon Dioxide 15 L Anion Gap 13 BUN 51 H Creatinine 2.81 H Est GFR ( Amer) 23 L Glucose 280 H Calcium 8.8 Total Bilirubin AST Alkaline Phosphatase Total Protein Albumin Serum HCG, Qual Blood Type A POSITIVE Antibody Screen NEGATIVE Assessment and Plan - Diagnosis (1) Post-op bleeding Is this a current diagnosis for this admission?: Yes Plan: Defer to ENT, transfuse hemoglobin less than 8 as needed (2) Diabetic keto-acidosis Is this a current diagnosis for this admission?: Yes Plan: Diabetic ketoacidosis patient has had some degree of polyuria polydipsia with nausea and uncontrolled hyperglycemia with supporting labs. Patient will receive IV fluids IV insulin serial chemistries every 6 hours for evaluation for electrolyte repletion. Continued evaluation for underlying cause if not found Patient will require diabetic education and consideration of mental health evaluation. (3) Acute renal failure Is this a current diagnosis for this admission?: Yes Plan: Likely secondary to DKA, follow-up UA, IV fluid challenge, avoid nephrotoxic meds and doses (4) Hyperkalemia Is this a current diagnosis for this admission?: Yes Plan: Secondary to DKA, anticipate resolution with follow-up chemistry - Time Time Spent with patient: 25-34 minutes - Inpatient Certification Medical Necessity: Need Close Monitoring Due to Risk of Patient Decompensation
[2019-08-04] MEDS ORDERED: SODIUM POLYSTYRENE SULFONATE 15 GM/60 ML PO ONE (07:49)
[2019-08-04] MEDS ORDERED: FUROSEMIDE INJ/PF 40 MG/4 ML SDV IV ONE (07:51)
[2019-08-04 08:17] LABS: APPEARANCE,URINE SLIGHTLY-CLOUDY; BILIRUBIN,URINE NEGATIVE (NEGATIVE); COLOR,URINE YELLOW; GLUCOSE, URINE 50 mg/dL (NEGATIVE); KETONES,URINE NEGATIVE (NEGATIVE); LEUKOCYTE ESTERASE,URINE SMALL (NEGATIVE); NITRITE,URINE NEGATIVE (NEGATIVE); PROTEIN,URINE 30 mg/dL (NEGATIVE); URINE SPECIFIC GRAVITY 1.014; UROBILINOGEN,URINE NEGATIVE mg/dL (<2.0)
[2019-08-04 09:49] LABS: ANION GAP 11 (5-19); BLOOD UREA NITROGEN 50 mg/dL (7-20); CALCIUM 8.2 mg/dL (8.4-10.2); CARBON DIOXIDE 19 mmol/L (22-30); CHLORIDE 115 mmol/L (98-107); GLUCOSE 211 mg/dL (75-110)
[2019-08-04 09:51] LABS: POTASSIUM 5.1 mmol/L (3.6-5.0)
[2019-08-04] MEDS: INSULIN GLARGINE,HUM.REC.ANLOG 1,000 UNIT/10 ML VIAL SUBCUT SCH ×2 (09:58→22:30)
--- NOTE | 2019-08-04 10:22 | PDOC PROGRESS REPORT ---
Subjective Progress Note for:: 08/04/19 Subjective:: Pt has some pain but is improving in all aspects. Reason For Visit: POST OP BLEED, DKA ARF Physical Exam Vital Signs: Temp Pulse Resp BP Pulse Ox 98.0 F 90 16 143/87 H 100 08/04/19 08:00 08/04/19 08:00 08/04/19 08:00 08/04/19 08:00 08/04/19 08:00 Intake & Output 08/03/19 08/04/19 08/05/19 06:59 06:59 06:59 Intake Total 1505 16 Output Total 250 Balance 1505 -234 Weight 79.1 kg General appearance: PRESENT: no acute distress, well-developed, well-nourished Head exam: PRESENT: atraumatic, normocephalic Eye exam: PRESENT: conjunctiva pink, EOMI, PERRLA. ABSENT: scleral icterus Ear exam: PRESENT: normal external ear exam Mouth exam: PRESENT: moist, tongue midline Throat exam: PRESENT: post pharyngeal erythema Neck exam: PRESENT: full ROM. ABSENT: carotid bruit, JVD, lymphadenopathy, thyromegaly Respiratory exam: PRESENT: clear to auscultation mauro, decreased breath sounds, unlabored Cardiovascular exam: PRESENT: RRR. ABSENT: diastolic murmur, rubs, systolic murmur Vascular exam: PRESENT: normal capillary refill GI/Abdominal exam: PRESENT: normal bowel sounds, soft. ABSENT: distended, guarding, mass, organolmegaly, rebound, tenderness Rectal exam: PRESENT: deferred Musculoskeletal exam: PRESENT: ambulatory, normal inspection Neurological exam: PRESENT: alert, awake, oriented to person, oriented to place, oriented to time, oriented to situation, CN II-XII grossly intact. ABSENT: motor sensory deficit Psychiatric exam: PRESENT: anxious Skin exam: PRESENT: dry, intact, warm. ABSENT: cyanosis, rash Results Laboratory Results: 08/04/19 04:23 08/04/19 09:05 08/04/19 08/04/19 08/04/19 01:57 01:57 01:57 WBC 11.0 H RBC 3.98 Hgb 12.6 Hct 37.1 MCV 93 MCH 31.8 MCHC 34.1 RDW 14.3 H Plt Count 444 Seg Neutrophils % 79.0 H Sodium 142.1 Potassium 5.7 H Chloride 106 Carbon Dioxide 20 L Anion Gap 16 BUN 53 H Creatinine 2.86 H Est GFR ( Amer) 23 L Glucose 237 H Calcium 9.7 Total Bilirubin 0.2 AST 16 Alkaline Phosphatase 66 Total Protein 8.5 H Albumin 4.8 Serum HCG, Qual NEGATIVE Urine Color Urine Appearance Urine pH Ur Specific [place] Urine Protein Urine Glucose (UA) Urine Ketones Urine Blood Urine Nitrite Ur Leukocyte Esterase Urine WBC (Auto) Urine RBC (Auto) Blood Type Antibody Screen 08/04/19 08/04/19 08/04/19 01:57 04:23 04:23 WBC 12.4 H RBC 3.28 L Hgb 10.1 L D Hct 30.6 L MCV 93 MCH 30.7 MCHC 32.9 RDW 14.4 H Plt Count 425 Seg Neutrophils % 71.1 Sodium 139.7 Potassium 6.4 H* Chloride 112 H Carbon Dioxide 15 L Anion Gap 13 BUN 51 H Creatinine 2.81 H Est GFR ( Amer) 23 L Glucose 280 H Calcium 8.8 Total Bilirubin AST Alkaline Phosphatase Total Protein Albumin Serum HCG, Qual Urine Color Urine Appearance Urine pH Ur Specific [place] Urine Protein Urine Glucose (UA) Urine Ketones Urine Blood Urine Nitrite Ur Leukocyte Esterase Urine WBC (Auto) Urine RBC (Auto) Blood Type A POSITIVE Antibody Screen NEGATIVE 08/04/19 08/04/19 07:47 09:05 WBC RBC Hgb Hct MCV MCH MCHC RDW Plt Count Seg Neutrophils % Sodium 144.6 Potassium 5.1 H D Chloride 115 H Carbon Dioxide 19 L Anion Gap 11 BUN 50 H Creatinine 2.35 H Est GFR ( Amer) 28 L Glucose 211 H Calcium 8.2 L Total Bilirubin AST Alkaline Phosphatase Total Protein Albumin Serum HCG, Qual Urine Color YELLOW Urine Appearance SLIGHTLY-CLOUDY Urine pH 5.0 Ur Specific [place] 1.014 Urine Protein 30 H Urine Glucose (UA) 50 H Urine Ketones NEGATIVE Urine Blood LARGE H Urine Nitrite NEGATIVE Ur Leukocyte Esterase SMALL H Urine WBC (Auto) 24 Urine RBC (Auto) 3 Blood Type Antibody Screen Assessment & Plan - Diagnosis (1) Acute renal failure Qualifiers: Acute renal failure type: unspecified Qualified Code(s): N17.9 - Acute kidney failure, unspecified Is this a current diagnosis for this admission?: Yes Plan: Improving. GFR 28, Cr 2.3 and K 5.1. With improvement she no longer needs the ICU level of care but telemetry for one more day to assure that he hyperkalemia is resolved and kidneys are improving. (2) Diabetic keto-acidosis Qualifiers: Diabetes mellitus type: type 1 Diabetes mellitus complication detail: without coma Qualified Code(s): E10.10 - Type 1 diabetes mellitus with ketoacidosis without coma Is this a current diagnosis for this admission?: Yes Plan: I am not totally convinced this is DKA. BG is < 300 and bicarb only 15 and with renal failure and bleeding this may be confounding the issus. Insulin drip off. Low dose BID lantus given. Pt no longer needs an ICU level of care. (3) Hyperkalemia Is this a current diagnosis for this admission?: Yes Plan: K is 5.1. No EKG changes. Resolved (4) Post-op bleeding Qualifiers: Surgical complication system/body Area: digestive system Is this a current diagnosis for this admission?: Yes Plan: Post op tosillar bleed repaired by intra-op cauterization. No recurrence. Pos-op plan per Dr. Matthews. - Time Time Spent with patient: 35 or more minutes Total Critical Time (Minutes): 35 Level of Care: TELE Medications reviewed and adjusted accordingly: Yes Anticipated discharge: Home Within: within 48 hours - Inpatient Certification Based on my medical assessment, after consideration of the patient's comorbidities, presenting symptoms, or acuity I expect that the services needed warrant INPATIENT care.: Yes I certify that my determination is in accordance with my understanding of Medicare's requirements for reasonable and necessary INPATIENT services [42 CFR 412.3e].: Yes Medical Necessity: Failure to Improve With Outpatient Therapy, Significant Comorbidiites Make Outpatient Treatment Too Risky, Need Close Monitoring Due to Risk of Patient Decompensation, Need For IV Fluids, Need For Continuous Telemetry Monitoring, Need for Surgery
[2019-08-04] MEDS ORDERED: INSULIN GLARGINE,HUM.REC.ANLOG 1,000 UNIT/10 ML VIAL SUBCUT SCH (11:00)
[2019-08-04] MEDS: ACETAMINOPHEN 325 MG TABLET PO PRN ×2 (12:02→19:01)
[2019-08-04] MEDS: NORMAL SALINE 1000 ML 1,000 ML IV PRN ×2 (12:03→19:02)
[2019-08-04] MEDS ORDERED: SUCCINYLCHOLINE CHLORIDE INJ 200 MG/10 ML VIAL ONE (13:43)
[2019-08-04] MEDS ORDERED: METOCLOPRAMIDE HCL INJ/PF 10 MG/2 ML SDV ONE (13:43)
[2019-08-04] MEDS ORDERED: DEXAMETHASONE SOD PHOSPHATE INJ 4 MG/1 ML VIAL ONE (13:43)
[2019-08-04] MEDS ORDERED: PHENYLEPHRINE HCL INJ/PF 10 MG/1 ML SDV ONE (13:43)
[2019-08-04 15:31] LABS: ANION GAP 15 (5-19); BLOOD UREA NITROGEN 44 mg/dL (7-20); CALCIUM 8.3 mg/dL (8.4-10.2); CARBON DIOXIDE 17 mmol/L (22-30); CHLORIDE 114 mmol/L (98-107); GLUCOSE 232 mg/dL (75-110); POTASSIUM 4.9 mmol/L (3.6-5.0)
[2019-08-04] MEDS ORDERED: METHYLPREDNISOLONE 4 MG TABLET PO ONE (17:00)
--- NOTE | 2019-08-04 18:10 | Progress Note ---
Provider Note Provider Note: Potassium now below 5.0, Cr and GFR improved to over 30. No longer needs telemetry
[2019-08-04] MEDS ORDERED: OXYCODONE-ACETAMINOPHEN 5-325 MG TABLET PO PRN (19:18)
[2019-08-04] MEDS ORDERED: ALPRAZOLAM 0.25 MG TABLET PO PRN (19:18)
--- NOTE | 2019-08-04 22:37 | EKG REPORT ---
SEVERITY:- NORMAL ECG - SINUS RHYTHM : Confirmed by: Jagdish Blake 04-Aug-2019 22:37:08
[2019-08-05] MEDS: OXYCODONE-ACETAMINOPHEN 5-325 MG TABLET PO PRN ×2 (00:55→04:33)
[2019-08-05 04:35] LABS: ABSOLUTE LYMPHOCYTES (AUTO) 1.9 10^3/uL (0.5-4.7); ABSOLUTE MONOCYTES (AUTO) 0.7 10^3/uL (0.1-1.4); ABSOLUTE NEUT (AUTO) 5.6 10^3/uL (1.7-8.2); BASOPHILS % (AUTO) 0.5 % (0-2); EOSINOPHILS % (AUTO) 0.2 % (0-6); HEMATOCRIT 24.9 % (36.0-47.0); HEMOGLOBIN 8.3 g/dL (12.0-15.5); LYMPHOCYTES % (AUTO) 22.9 % (13-45); MEAN CORPUSCULAR HEMOGLOBIN 30.7 pg (27.0-33.4); MEAN CORPUSCULAR HGB CONC 33.2 g/dL (32.0-36.0); MEAN CORPUSCULAR VOLUME 93 fl (80-97); MONOCYTES % (AUTO) 8.3 % (3-13); PLATELET COUNT 281 10^3/uL (150-450); SEGMENTED NEUTROPHILS % (AUTO) 68.1 % (42-78); TOTAL CELLS COUNTED % (AUTO) 100 %; WHITE BLOOD COUNT 8.2 10^3/uL (4.0-10.5)
[2019-08-05 04:53] LABS: ANION GAP 8 (5-19); BLOOD UREA NITROGEN 28 mg/dL (7-20); CALCIUM 7.6 mg/dL (8.4-10.2); CARBON DIOXIDE 22 mmol/L (22-30); CHLORIDE 115 mmol/L (98-107); GLUCOSE 187 mg/dL (75-110); POTASSIUM 4.4 mmol/L (3.6-5.0)
[2019-08-05] MEDS ORDERED: OXYCODONE HCL IR 5 MG TABLET PO PRN (06:49)
[2019-08-05] MEDS ORDERED: ALPRAZOLAM 0.25 MG TABLET PO PRN (06:49)
[2019-08-05] MEDS ORDERED: ONDANSETRON HCL INJ/PF 4 MG/2 ML SDV ONE (07:26)
[2019-08-05] MEDS ORDERED: (PENDING PHARMACY ID) (Azelastine Hcl [Azelastine Hcl] 1 SPRAY) NAREB SCH (10:00)
[2019-08-05] MEDS ORDERED: FLUTICASONE NASAL SPRAY 50 MCG/SPRY 120 SPRAY/16 GM NAREB SCH (10:00)
[2019-08-05] MEDS ORDERED: LISINOPRIL 10 MG TABLET PO SCH (10:00)
[2019-08-05] MEDS ORDERED: FERROUS SULFATE 325 MG TABLET PO SCH (10:00)
[2019-08-05] MEDS ORDERED: OXYCODONE-ACETAMINOPHEN 5-325 MG TABLET PO PRN (11:15)
--- NOTE | 2019-08-05 11:48 | PDOC DISCHARGE SUMMARY ---
Impression - Admit/DC Date/PCP Admission Date/Primary Care Provider: 08/04/19 05:11 Discharge Date: 08/05/19 - Discharge Diagnosis (1) Acute renal failure Is this a current diagnosis for this admission?: Yes (2) Diabetic keto-acidosis Is this a current diagnosis for this admission?: Yes (3) Hyperkalemia Is this a current diagnosis for this admission?: Yes (4) Post-op bleeding Is this a current diagnosis for this admission?: Yes - Assessment Summary: Nearly 2 weeks post tonsillectomy with a post op bleed. Cuaterized. Had metabolic acidosis, hypergycemia, ARF now resolved. Post cuatery course uneventful. Acidosis cleared no bleeding. To follow up with Dr. Gagan Lane. Office to call. - Additional Information Resuscitation Status: Full Code Discharge Diet: Other (Comments) - Post-tonsillectomy diet. Discharge Activity: Activity As Tolerated Referrals: SAMEER BANERJEE, STEVE [COMMUNITY BASED STAFF] - Follow up as needed Home Medications: Insulin Glargine,Hum.rec.anlog [Lantus Insulin 100 Unit/1 ml 10 ml] 62 unit SUBCUT QHS 04/03/16 Alprazolam [Xanax 0.25 mg Tablet] 0.25 mg PO Q8HP PRN 09/25/17 Dulaglutide [Trulicity] 1 dose SQ SA@1000 09/25/17 Atorvastatin Calcium [Lipitor 10 mg Tablet] 10 mg PO QHS 08/04/19 Azelastine HCl 1 spray NAREB Q12 08/04/19 Ferrous Sulfate [Feosol 325 mg Tablet] 325 mg PO DAILY 08/04/19 Fluticasone Propionate [Flonase Nasal Fore[place] 50 Mcg/Foreman 16 gm] 2 spray NAREB DAILY 08/04/19 Insulin Aspart [Novolog Flexpen] 0 units SUBCUT .SLIDING SCALE 08/04/19 Lisinopril [Prinivil 10 mg Tablet] 10 mg PO DAILY 08/04/19 Methylprednisolone [Medrol Dosepack (4 mg/Tab) 21 Tab/Dosepak] 4 mg PO ASDIR PRN 08/04/19 Oxycodone HCl [Oxy-Ir 5 mg Tablet] 5 mg PO Q4HP PRN 08/04/19 Quetiapine Fumarate [Seroquel 25 mg Tablet] 50 mg PO QHS 08/04/19 Sertraline HCl [Zoloft] 100 mg PO DAILY 08/04/19 History of Present Illiness History of Present Illness: LUZMARIA MENDOZA is a 34 year old female. She had a tonsillectomy nearly 2 weeks ago and a fairly severe post tonsillectomy bleed. She presented dehydrated, in ARF and subsequently hyperkalemia. Her kidneys have nearly returned to baseline, K level 4.4. She had one dose of kayexalate. Thought to be in DKA. Most likely hyperglycemia. Treated with an insulin drip in any event. She is still having some pain and will be discharged on PO oxycodone a about 3 days of solumedrol. She will follow uo Wed with Dr. Farah whose office will call her later today. Hospital Course Hospital Course: As described Physical Exam Vital Signs: Temp Pulse Resp BP Pulse Ox 98.0 F 94 16 148/103 H 100 08/05/19 08:57 08/05/19 08:57 08/05/19 08:57 08/05/19 08:57 08/05/19 08:57 Intake & Output 08/04/19 08/05/19 08/06/19 06:59 06:59 06:59 Intake Total 1505 1226 Output Total 850 Balance 1505 376 Weight 79.1 kg 77.6 kg General appearance: PRESENT: no acute distress, well-developed, well-nourished Head exam: PRESENT: atraumatic, normocephalic Eye exam: PRESENT: conjunctiva pink, EOMI, PERRLA. ABSENT: scleral icterus Ear exam: PRESENT: normal external ear exam Mouth exam: PRESENT: moist, tongue midline Neck exam: ABSENT: carotid bruit, JVD, lymphadenopathy, thyromegaly Respiratory exam: PRESENT: clear to auscultation mauro, decreased breath sounds, unlabored Cardiovascular exam: PRESENT: RRR. ABSENT: diastolic murmur, rubs, systolic murmur Pulses: PRESENT: normal dorsalis pedis pul GI/Abdominal exam: PRESENT: normal bowel sounds, soft. ABSENT: distended, guarding, mass, organolmegaly, rebound, tenderness Rectal exam: PRESENT: deferred Extremities exam: PRESENT: full ROM Musculoskeletal exam: PRESENT: full ROM, normal inspection Neurological exam: PRESENT: alert, awake, oriented to person, oriented to place, oriented to time, oriented to situation, CN II-XII grossly intact. ABSENT: motor sensory deficit Psychiatric exam: PRESENT: anxious, other - Emotionally labile Skin exam: PRESENT: dry, intact, warm. ABSENT: cyanosis, rash Results Laboratory Results: WBC 8.2 10^3/uL (4.0-10.5) 08/05/19 04:20 RBC 2.70 10^6/uL (3.72-5.28) L 08/05/19 04:20 Hgb 8.3 g/dL (12.0-15.5) L 08/05/19 04:20 Hct 24.9 % (36.0-47.0) L 08/05/19 04:20 MCV 93 fl (80-97) 08/05/19 04:20 MCH 30.7 pg (27.0-33.4) 08/05/19 04:20 MCHC 33.2 g/dL (32.0-36.0) 08/05/19 04:20 RDW 14.0 % (11.5-14.0) 08/05/19 04:20 Plt Count 281 10^3/uL (150-450) 08/05/19 04:20 Lymph % (Auto) 22.9 % (13-45) 08/05/19 04:20 [place] % (Auto) 8.3 % (3-13) 08/05/19 04:20 Eos % (Auto) 0.2 % (0-6) 08/05/19 04:20 Baso % (Auto) 0.5 % (0-2) 08/05/19 04:20 Absolute Neuts (auto) 5.6 10^3/uL (1.7-8.2) 08/05/19 04:20 Absolute Lymphs (auto) 1.9 10^3/uL (0.5-4.7) 08/05/19 04:20 Absolute Monos (auto) 0.7 10^3/uL (0.1-1.4) 08/05/19 04:20 Absolute Eos (auto) 0.0 10^3/uL (0.0-0.6) 08/05/19 04:20 Absolute Basos (auto) 0.0 10^3/uL (0.0-0.2) 08/05/19 04:20 Seg Neutrophils % 68.1 % (42-78) 08/05/19 04:20 Sodium 145.2 mmol/L (137-145) H 08/05/19 04:20 Potassium 4.4 mmol/L (3.6-5.0) 08/05/19 04:20 Chloride 115 mmol/L (98-107) H 08/05/19 04:20 Carbon Dioxide 22 mmol/L (22-30) 08/05/19 04:20 Anion Gap 8 (5-19) 08/05/19 04:20 BUN 28 mg/dL (7-20) H 08/05/19 04:20 Creatinine 1.48 mg/dL (0.52-1.25) H 08/05/19 04:20 Est GFR ( Amer) 49 (>60) L 08/05/19 04:20 Est GFR (MDRD) Non-Af 40 (>60) L 08/05/19 04:20 Glucose 187 mg/dL (75-110) H 08/05/19 04:20 POC Glucose 166 mg/dL (70-110) H 08/05/19 06:38 Hemoglobin A1c % 8.3 % (4.7-6.0) H 08/05/19 04:20 Calcium 7.6 mg/dL (8.4-10.2) L 08/05/19 04:20 Total Bilirubin 0.2 mg/dL (0.2-1.3) 08/04/19 01:57 Direct Bilirubin 0.1 mg/dL (0.0-0.4) 08/04/19 01:57 Neonat Total Bilirubin Not Reportable 08/04/19 01:57 Neonat Direct Bilirubin Not Reportable 08/04/19 01:57 Neonat Indirect Bili Not Reportable 08/04/19 01:57 AST 16 U/L (14-36) 08/04/19 01:57 ALT 14 U/L (<35) 08/04/19 01:57 Alkaline Phosphatase 66 U/L (38-126) 08/04/19 01:57 Total Protein 8.5 g/dL (6.3-8.2) H 08/04/19 01:57 Albumin 4.8 g/dL (3.5-5.0) 08/04/19 01:57 Serum HCG, Qual NEGATIVE (NEGATIVE) 08/04/19 01:57 Urine Color YELLOW 08/04/19 07:47 Urine Appearance SLIGHTLY-CLOUDY 08/04/19 07:47 Urine pH 5.0 (5.0-9.0) 08/04/19 07:47 Ur Specific [place] 1.014 08/04/19 07:47 Urine Protein 30 mg/dL (NEGATIVE) H 08/04/19 07:47 Urine Glucose (UA) 50 mg/dL (NEGATIVE) H 08/04/19 07:47 Urine Ketones NEGATIVE mg/dL (NEGATIVE) 08/04/19 07:47 Urine Blood LARGE (NEGATIVE) H 08/04/19 07:47 Urine Nitrite NEGATIVE (NEGATIVE) 08/04/19 07:47 Urine Bilirubin NEGATIVE (NEGATIVE) 08/04/19 07:47 Urine Urobilinogen NEGATIVE mg/dL (<2.0) 08/04/19 07:47 Ur Leukocyte Esterase SMALL (NEGATIVE) H 08/04/19 07:47 Urine WBC (Auto) 24 /HPF 08/04/19 07:47 Urine RBC (Auto) 3 /HPF 08/04/19 07:47 U Hyaline Cast (Auto) 4 /LPF 08/04/19 07:47 Urine Bacteria (Auto) TRACE /HPF 08/04/19 07:47 Squamous Epi Cells Auto 2 /HPF 08/04/19 07:47 Urine Mucus (Auto) RARE /LPF 08/04/19 07:47 Urine Ascorbic Acid NEGATIVE (NEGATIVE) 08/04/19 07:47 Blood Type A POSITIVE 08/04/19 01:57 Antibody Screen NEGATIVE 08/04/19 01:57 Crossmatch See Detail 08/04/19 01:57 Plan Health Concerns: Return of kidney function. Staying hydrated. Returning to diet. Plan of Treatment: PRN pain meds, 3 days of solumedrol, post-tonsil diet and follow up with Dr Gagan Lane of next week. Goals: Return to baseline. Stroke Is this a Stroke Patient?: No Acute Heart Failure - Is this a Heart Failure Patient?: No
[2019-08-05 11:59] VITALS: BP 141/98
[2019-08-05] MEDS ORDERED: METHYLPREDNISOLONE 4 MG TABLET PO SCH (18:00)
[2019-08-05] MEDS ORDERED: ATORVASTATIN CALCIUM 10 MG TABLET PO SCH (22:00)
[2019-08-05] MEDS ORDERED: QUETIAPINE FUMARATE 25 MG TABLET PO SCH (22:00)
== END 2019-08-05 12:00 | disposition home or self-care (01) | DRG 907 ==
LOC: ER 00:12 → ICU 05:11
PROVIDERS: ADMIT Internal Medicine; ATTEND Internal Medicine
PROC: 0W337ZZ Control Bleeding in Oral Cavity and Throat, Via Natural or Artificial Opening (ICD-10-PCS; principal; 2019-08-04 03:45)
DX: E89.810 Postprocedural hemorrhage of an endocrine system organ or structure following an endocrine system procedure (principal); E11.10 Type 2 diabetes mellitus with ketoacidosis without coma; N17.9 Acute kidney failure, unspecified; Y84.8 Other medical procedures as the cause of abnormal reaction of the patient, or of later complication, without mention of misadventure at the time of the procedure; F31.9 Bipolar disorder, unspecified; E87.5 Hyperkalemia; I10 Essential (primary) hypertension; D64.9 Anemia, unspecified; Z79.899 Other long term (current) drug therapy; Z79.4 Long term (current) use of insulin; Z87.891 Personal history of nicotine dependence; Z83.3 Family history of diabetes mellitus; Z82.49 Family history of ischemic heart disease and other diseases of the circulatory system
CPT/HCPCS: 170; 36415; 80048; 80053; 81001; 82962; 83036; 84703; 85025; 86850; 86900; 86901; 86920; 93005; 93010; 96365; 96375; 99285; J0330; J1100; J1815; J1940; J2060; J2250; J2370; J2405; J2704; J2765; J3010; J3490; J7030; J7509

== ENCOUNTER 2019-11-02 09:44 | Emergency (ER) | payer MEDICAID ==
--- NOTE | 2019-11-02 11:30 | ER Document Report ---
ED Medical Screen (RME) - General Chief Complaint: Leg Pain Stated Complaint: RIGHT LEG PAIN Time Seen by Provider: 11/02/19 11:26 Mode of Arrival: Ambulatory Information source: Patient Notes: [id number]-year-old female presented to ED for complaint of pain to the right calf posterior since last night. She was sent by urgent care to rule out DVT. She states she has not had any long distance travel. She states she does smoke cigars a day. She states she also is on an IUD. No surgeries in the last 2 to 3 months. No fractures the last 2 to 3 months. She has been on her feet for 7 hours a day for the last 14 days. I have greeted and performed a rapid initial assessment of this patient. A comprehensive ED assessment and evaluation of the patient, analysis of test results and completion of medical decision making process will be conducted by an additional ED providers. TRAVEL OUTSIDE OF THE [place] IN LAST 30 DAYS: No - Related Data Allergies/Adverse Reactions: No Known Allergies Allergy (Verified 11/02/19 11:25) Past Medical History - Past Medical History Cardiac Medical History: Reports: Hx Hypertension - per EMR rollover Pulmonary Medical History: Endocrine Medical History: Reports: Hx Diabetes Mellitus Type 2 - Per EMR Renal/ Medical History: Denies: Hx Peritoneal Dialysis Psychiatric Medical History: Reports: Hx Bipolar Disorder - per EMR, Hx D epression Past Surgical History: Reports: Hx Gynecologic Surgery - D&C, Hx Tonsillectomy - Immunizations Hx Diphtheria, Pertussis, Tetanus Vaccination: Yes Physical Exam - Vital signs Vitals: Temp Pulse Resp BP Pulse Ox 98.0 F 91 18 131/79 H 100 11/02/19 11:11/02/19 11:11/02/19 11:11/02/19 11:11/02/19 11:26 Course - Vital Signs Vital signs: Temp Pulse Resp BP Pulse Ox 98.0 F 91 18 131/79 H 100 11/02/19 11:11/02/19 11:11/02/19 11:11/02/19 11:11/02/19 11:26
--- NOTE | 2019-11-02 14:12 | ER Document Report ---
ED Extremity Problem, Lower - General Chief Complaint: Leg Pain Stated Complaint: RIGHT LEG PAIN Time Seen by Provider: 11/02/19 11:26 Mode of Arrival: Ambulatory Information source: Patient TRAVEL OUTSIDE OF THE [place] IN LAST 30 DAYS: No - HPI Notes: Patient states last night she had the sudden onset of severe pain in the right calf. Afterwards she noticed some swelling and tightness. She went to the urgent care today and they referred her to the emergency department for possible DVT. This pain is throbbing and constant. Is mild to moderate. It is worse with movement and better with rest. It does radiate up her right leg. She states he has no previous history of blood clots. She does smoke. She does not take any type of hormone therapy. Patient denies control pills. No family history of DVTs. - Related Data Allergies/Adverse Reactions: No Known Allergies Allergy (Verified 11/02/19 11:25) Past Medical History - General Information source: Patient - Social History Smoking Status: Current Every Day Smoker Frequency of alcohol use: None Drug Abuse: None Family History: Reviewed & Not Pertinent Patient has suicidal ideation: No Patient has homicidal ideation: No - Past Medical History Cardiac Medical History: Reports: Hx Hypertension - per EMR rollover Pulmonary Medical History: Endocrine Medical History: Reports: Hx Diabetes Mellitus Type 2 - Per EMR Renal/ Medical History: Denies: Hx Peritoneal Dialysis Psychiatric Medical History: Reports: Hx Bipolar Disorder - per EMR, Hx Depression Past Surgical History: Reports: Hx Gynecologic Surgery - D&C, Hx Tonsillectomy - Immunizations Hx Diphtheria, Pertussis, Tetanus Vaccination: Yes Review of Systems - Review of Systems Constitutional: denies: Chills, Fever Cardiovascular: denies: Chest pain, Dyspnea Respiratory: denies: Cough, Short of breath -: Yes All other systems reviewed and negative Physical Exam - Vital signs Vitals: Temp Pulse Resp BP Pulse Ox 98.0 F 91 18 131/79 H 100 11/02/19 11:26 11/02/19 11:26 11/02/19 11:26 11/02/19 11:11/02/19 11:26 Interpretation: Normal - General General appearance: Appears well, Alert - HEENT Head: Normocephalic, Atraumatic Eyes: Normal Pupils: PERRL - Respiratory Respiratory status: No respiratory distress Chest status: Nontender Breath sounds: Normal Chest palpation: Normal - Cardiovascular Rhythm: Regular Heart sounds: Normal auscultation Murmur: No - Abdominal Inspection: Normal Distension: No distension Bowel sounds: Normal Tenderness: Nontender Organomegaly: No organomegaly - Back Back: Normal, Nontender - Extremities General upper extremity: Normal inspection, Nontender, Normal color, Normal ROM, Normal temperature General lower extremity: Normal inspection, Tender - Right calf is mildly tender to palpation., Normal color, Normal ROM, Normal temperature. No: Tk's sign - Neurological Neuro grossly intact: Yes Cognition: Normal Orientation: AAOx4 [place] Coma Scale Eye Opening: Spontaneous Cristian Coma Scale Verbal: Oriented [place] Coma Scale Motor: Obeys Commands [place] Coma Scale Total: 15 Speech: Normal Motor strength normal: LUE, RUE, LLE, RLE Sensory: Normal - Psychological Associated symptoms: Normal affect, Normal mood - Skin Skin Temperature: Warm Skin Moisture: Dry Skin Color: Normal Course - Vital Signs Vital signs: Temp Pulse Resp BP Pulse Ox 98.0 F 91 18 131/79 H 100 11/02/19 11:26 11/02/19 11:26 11/02/19 11:26 11/02/19 11:26 11/02/19 11:26 - Diagnostic Test Radiology reviewed: Image reviewed, Reports reviewed Discharge - Discharge Clinical Impression: Right leg pain Condition: Stable Disposition: HOME, SELF-CARE Instructions: Leg Cramps ([facility]) Referrals: [facility] [Provider Group] - Follow up in 3-5 days
[2019-11-02 14:25] VITALS: BP 130/82
--- NOTE | 2019-11-02 16:25 | XCELERA REPORT ---
[address] [place] [facility] [address] Lower Extremity Venous Evaluation Procedure: Color flow and duplex imaging of the veins of the right lower extremity as well as the left Common Femoral vein. Right Sided Venous Evaluation Normal vessel filling wall to wall, compression and augmentation as well as Colour flow down to the infrageniculate veins. Left Sided Venous Evaluation The left common femoral vein is fully compressible. Spontaneous and phasic flow is present in the left common femoral vein. Interpretation Summary No duplex evidence of DVT or obstruction in the right lower extremity nor in the left Common Femoral vein. Name: LUZMARIA MENDOZA Age: 34 yrs Gender: Female : 1985 Patient Status: Emergency Patient Location: ER Study Date: 11/02/2019 12:20 PM Reason For Study: In posterior right calf Ordering Physician: ANGELA COREAS Performed By: Valarie Wise : ANGELA COREAS > Yemi Cline
== END 2019-11-02 14:36 | disposition home or self-care (01) ==
LOC: ER 09:44
DX: M79.604 Pain in right leg (principal); M79.89 Other specified soft tissue disorders; F17.200 Nicotine dependence, unspecified, uncomplicated; I10 Essential (primary) hypertension; E11.9 Type 2 diabetes mellitus without complications
CPT/HCPCS: 93971; 99283

== ENCOUNTER 2019-12-18 13:24 | Emergency (ER) | payer MEDICAID ==
--- NOTE | 2019-12-18 13:56 | ER Document Report ---
HPI - HPI Time Seen by Provider: 12/18/19 13:37 Notes: Patient is a 34-year-old female with h/o HTN, DM, CKD, and asthma who presents to the ED complaining of nasal congestion/discharge, dry nonproductive cough, feverish, body ache 1 day. She states that she never realized she had any "shallow breathing" or any respiratory discomfort until the provider at the urgent care told her to take a deep breath. They performed strep/flu/covid testing at the urgent care which is negative aside from pending COVID. She was then sent here for evaluation. Patient states that she is still eating and drinking without difficulties. She is still urinating normally having normal bowel movements. Patient has been using some [id number] meds for symptoms. Denies any current headache, neck pain, sore throat, chest pain, palpitations, syncope, shortness of breath, wheeze, dyspnea, abdominal pain, nausea/vomiting/diarrhea, urinary retention, dysuria, hematuria, or rash. Denies any prolonged immobilization, distance travel, recent surgery/trauma, personal cancer history, hormone use, smoking, or previous DVT/PE. - ROS Systems Reviewed and Negative: Yes All other systems reviewed and negative - REPRODUCTIVE Reproductive: DENIES: : Past Medical History - Social History Smoking Status: Never Smoker Family History: Reviewed & Not Pertinent - Past Medical History Cardiac Medical History: Reports: Hx Hypertension - per EMR rollover Pulmonary Medical History: Endocrine Medical History: Reports: Hx Diabetes Mellitus Type 2 - Per EMR Renal/ Medical History: Denies: Hx Peritoneal Dialysis Psychiatric Medical History: Reports: Hx Bipolar Disorder - per EMR, Hx Depression Past Surgical History: Reports: Hx Gynecologic Surgery - D&C, Hx Tonsillectomy - Immunizations Hx Diphtheria, Pertussis, Tetanus Vaccination: Yes Vertical Provider Document - CONSTITUTIONAL Agree With Documented VS: Yes Notes: PHYSICAL EXAMINATION: GENERAL: Well-appearing, well-nourished and in no acute distress. HEAD: Atraumatic, normocephalic. EYES: Pupils equal round and reactive to light, extraocular movements intact, sclera anicteric, conjunctiva are normal. ENT: Nares patent and with clear discharge. oropharynx clear without exudates. No tonsilar hypertrophy or erythema. Moist mucous membranes. NECK: Normal range of motion, supple without lymphadenopathy LUNGS: Breath sounds clear to auscultation bilaterally and equal. No wheezes rales or rhonchi. No retractions. Patient is speaking in complete and full sentences. There is no obvious shallow breathing noted. HEART: Regular rate and rhythm without murmurs, rubs, gallops. ABDOMEN: Soft, nontender, nondistended abdomen. No guarding, no rebound. Normal bowel sounds present. No CVA tenderness bilaterally. Musculoskeletal: FROM to passive/active. Strength 5+/5. Tk neg. No asymmetry to LE's. Extremities: No cyanosis, clubbing, or edema b/l. Peripheral pulses 2+. Capi llary refill less than 3 seconds. NEUROLOGICAL: Normal speech, normal gait. PSYCH: Normal mood, normal affect. SKIN: Warm, Dry, normal turgor, no rashes or lesions noted. - INFECTION CONTROL TRAVEL OUTSIDE OF THE [place] IN LAST 30 DAYS: No Course - Re-evaluation Re-evalutation: 12/18/19 Patient is an afebrile, well-hydrated, 44-year-old male who presents to the ED with acute URI, suspect viral, questionable COVID/Influenza. Vitals are acceptable without significant tachycardia, tachypnea, hypoxia. PE is otherwise unremarkable. Lungs are clear to auscultation bilaterally. Rapid strep, influenza were reported negative at the urgent care. COVID testing performed and is pending from the urgent care. CBC, CMP (Cr baseline), EKG, chest x-ray are all unremarkable for any acute pathology. Patient has a Wells score of 0 and is PERC negative. Patient does not have any chest pain, dyspnea, or shortness of breath. No further labs or imaging warranted at this time based on H&P. Patient is nontoxic-appearing and is in no acute distress. Patient is tolerating p.o. without any difficulties. Thoroughly reviewed self-quarantine for approximately 5 days until notified about your viral testing. Stressed the importance of it and the risks/benefits. Low suspicion for any ACS, PE, pneumothorax, pericarditis, dissection, respiratory compromise, severe dehydration, meningitis, sepsis, peritonsillar/pharyngeal abscess, respiratory compromise, or other emergent systemic condition at this time. Patient is aware this condition can change from initial presentation and needs to monitor symptoms closely. Rx for inhaler/tessalon. Conservative measures otherwise for symptoms. Recheck with your PCM as needed otherwise. Return to the ED with any worsening/concerning symptoms otherwise as reviewed in discharge. Patient is in agreement. - Laboratory Result Diagrams: 12/18/19 13:50 12/18/19 13:50 Discharge - Discharge Clinical Impression: Acute URI Condition: Stable Disposition: HOME, SELF-CARE Instructions: Upper Respiratory Illness ([facility]) Additional Instructions: You have been tested for coronavirus and your test will take 4 to 5 days to complete. It is very important that you self-quarantine at home until notified about your lab test!! Maintain adequate fluid intake tylenol as needed for fever/body ache over the counter cold medication as needed for symptoms Humidified air may help Wash your hands regularly Wear a mask when coughing F/u: with your PCM as needed otherwise and/or when cleared Return to the ED with any fever, altered mental status/behavior, chest pain, palpitations, syncope, headache, neck pain/stiffness, shortness of breath, chest pains, wheezing, drooling, trouble swallowing/breathing, abdominal pain, n/v/d, rash, or worsening/concerning symptoms otherwise. Prescriptions: Benzonatate [Tessalon Perles 100 mg Capsule] 100 mg PO Q8HP PRN #15 capsule PRN Reason: Albuterol Sulfate [Proair HFA Inhalation Aerosol 8.5 gm MDI] 2 puff IH Q4H PRN #1 mdi PRN Reason: Inhaler, Assist Devices [Space Chamber Plus] 1 each MC ASDIR PRN #1 spacer PRN Reason: Forms: Elevated Blood Pressure Referrals: [facility] [Provider Group] - Follow up as needed
--- NOTE | 2019-12-18 14:13 | RADIOLOGY REPORT (SQ) ---
EXAM DESCRIPTION: CHEST SINGLE VIEW COMPLETED DATE/TIME: 12/18/2019 2:00 pm REASON FOR STUDY: Cough, sob COMPARISON: None. NUMBER OF VIEWS: One view. TECHNIQUE: Single frontal radiographic view of the chest acquired. LIMITATIONS: None. FINDINGS: LUNGS AND PLEURA: No opacities, masses or pneumothorax. No pleural effusion. MEDIASTINUM AND HILAR STRUCTURES: No masses. Contour normal. HEART AND VASCULAR STRUCTURES: Heart normal in size. Normal vasculature. BONES: No acute findings. HARDWARE: None in the chest. OTHER: No other significant finding. IMPRESSION: NO SIGNIFICANT RADIOGRAPHIC FINDING IN THE CHEST. TECHNICAL DOCUMENTATION: JOB ID: [id number] 2010 [employer]- All Rights Reserved Reading location - IP/workstation name: [email or web address]
[2019-12-18 14:32] LABS: ABSOLUTE BASOPHILS # (AUTO) 0.1 10^3/uL (0.0-0.2); ABSOLUTE EOSINOPHILS # (AUTO) 0.1 10^3/uL (0.0-0.6); ABSOLUTE LYMPHOCYTES (AUTO) 1.8 10^3/uL (0.5-4.7); ABSOLUTE MONOCYTES (AUTO) 0.5 10^3/uL (0.1-1.4); ABSOLUTE NEUT (AUTO) 5.9 10^3/uL (1.7-8.2); BASOPHILS % (AUTO) 0.6 % (0-2); EOSINOPHILS % (AUTO) 1.4 % (0-6); HEMATOCRIT 37.8 % (36.0-47.0); LYMPHOCYTES % (AUTO) 21.7 % (13-45); MEAN CORPUSCULAR HEMOGLOBIN 31.9 pg (27.0-33.4); MEAN CORPUSCULAR HGB CONC 34.3 g/dL (32.0-36.0); MEAN CORPUSCULAR VOLUME 93 fl (80-97); MONOCYTES % (AUTO) 5.5 % (3-13); PLATELET COUNT 188 10^3/uL (150-450); RED BLOOD COUNT 4.07 10^6/uL (3.72-5.28); RED CELL DISTRIBUTION WIDTH 14.8 % (11.5-14.0); SEGMENTED NEUTROPHILS % (AUTO) 70.8 % (42-78); TOTAL CELLS COUNTED % (AUTO) 100 %; WHITE BLOOD COUNT 8.3 10^3/uL (4.0-10.5)
[2019-12-18 14:48] LABS: ALBUMIN 4.2 g/dL (3.5-5.0); ALKALINE PHOSPHATASE 62 U/L (38-126); ANION GAP 5 (5-19); ASPARTATE AMINO TRANSFERASE 22 U/L (14-36); BILIRUBIN,TOTAL 0.3 mg/dL (0.2-1.3); BLOOD UREA NITROGEN 20 mg/dL (7-20); CALCIUM 9.3 mg/dL (8.4-10.2); CARBON DIOXIDE 26 mmol/L (22-30); CHLORIDE 110 mmol/L (98-107); GLUCOSE 143 mg/dL (75-110); POTASSIUM 4.6 mmol/L (3.6-5.0); TOTAL PROTEIN 7.1 g/dL (6.3-8.2)
[2019-12-18 15:53] VITALS: BP 157/90
--- NOTE | 2019-12-19 05:47 | EKG REPORT ---
SEVERITY:- BORDERLINE ECG - SINUS RHYTHM LVH BY VOLTAGE : Confirmed by: Elif Kowalski MD 19-Dec-2019 05:46:33
== END 2019-12-18 16:04 | disposition home or self-care (01) ==
LOC: ER 13:24
DX: J06.9 Acute upper respiratory infection, unspecified (principal); R05 Cough; R09.89 Other specified symptoms and signs involving the circulatory and respiratory systems; J45.909 Unspecified asthma, uncomplicated; I10 Essential (primary) hypertension; E11.9 Type 2 diabetes mellitus without complications
CPT/HCPCS: 36415; 71045; 80053; 85025; 93005; 93010; 99284

== ENCOUNTER 2020-02-28 19:22 | Emergency (ER) | payer MEDICAID ==
[2020-02-28] MEDS ORDERED: IBUPROFEN 800 MG TABLET PO ONE (19:49)
--- NOTE | 2020-02-28 19:59 | ER Document Report ---
ED Medical Screen (RME) - General Stated Complaint: BACK/LEG/ARM PAIN Primary Care Provider: SAMEER BANERJEE FNP-C [Primary Care Provider] - Follow up as needed TRAVEL OUTSIDE OF THE [place] IN LAST 30 DAYS: No - HPI Notes: 02/28/20 19:50 34-year-old female with a history of asthma, type 2 diabetes, hypertension presents to the emergency room for 2 complaints. Patient states that she has had increased confusion and headaches for the last 2 weeks that has become progressively worse. She states she could not remember how to start her car the other day, she thought her gas pedal was a break the other day. She is concerned because both her parents are going on her evaluation for dementia. Patient does have a history of migraines, has not been seen by a neurologist. States that they did try Imitrex which did not work for her. Denies any chest pain shortness of breath. Patient also reports that she fell from a ladder 4 days ago. States she was trying to go down the ladder and fell approximately 2 feet into a cement wall and hit the right side of her thoracic and lumbar spine. Pain has become progressively worse. Worse with sudden movements, better with resting. Reports pain is shooting. Has only tried [id number] Tylenol. Denies hitting head or change in level consciousness. I have greeted and performed a rapid initial assessment of this patient. A comprehensive ED assessment and evaluation of the patient, analysis of test results and completion of the medical decision making process will be conducted by additional ED providers. PHYSICAL EXAMINATION: GENERAL: Well-appearing, well-nourished and in no acute distress. HEAD: Atraumatic, normocephalic. EYES: Pupils equal round extraocular movements intact, conjunctiva are normal. NECK: Normal range of motion CV: s1, s2 regular LUNGS: No respiratory distress Musculoskeletal: Normal range of motion. Right paraspinal tenderness from throacic to lumbar spine. NEUROLOGICAL: Normal speech, normal gait. SKIN: Warm, Dry, normal turgor, no rashes or lesions noted. 02/28/20 19:53 - Related Data Allergies/Adverse Reactions: No Known Allergies Allergy (Verified 11/02/19 11:25) Past Medical History - Past Medical History Cardiac Medical History: Reports: Hx Hypertension - per EMR rollover Pulmonary Medical History: Endocrine Medical History: Reports: Hx Diabetes Mellitus Type 2 - Per EMR Renal/ Medical History: Denies: Hx Peritoneal Dialysis Psychiatric Medical History: Reports: Hx Bipolar Disorder - per EMR, Hx Depression Past Surgical History: Reports: Hx Gynecologic Surgery - D&C, Hx Tonsillectomy - Immunizations Hx Diphtheria, Pertussis, Tetanus Vaccination: Yes Physical Exam - Vital signs Vitals: Temp Pulse Resp BP Pulse Ox 98.1 F 89 18 158/88 H 99 02/28/20 19:25 02/28/20 19:25 02/28/20 19:25 02/28/20 19:25 02/28/20 19:25 Course - Vital Signs Vital signs: Temp Pulse Resp BP Pulse Ox 98.1 F 89 18 158/88 H 99 02/28/20 19:25 02/28/20 19:25 02/28/20 19:25 02/28/20 19:25 02/28/20 19:25 Doctor's Discharge - Discharge Referrals: SAMEER BANERJEE, BOOKING OFFICER-C [Primary Care Provider] - Follow up as needed
--- NOTE | 2020-02-28 20:25 | RADIOLOGY REPORT (SQ) ---
INDICATION: s/p fall, pain to mid and lower back. TECHNIQUE: 2 view(s) of the thoracic spine. COMPARISON: None FINDINGS: No evidence of acute displaced fracture. Alignment is anatomic. The facets and intervertebral joints are within normal limits for age. Vertebral body heights are well-maintained. Surrounding soft tissues are unremarkable. IMPRESSION: No evidence of acute displaced fracture of the thoracic spine.
--- NOTE | 2020-02-28 20:26 | RADIOLOGY REPORT (SQ) ---
INDICATION: s/p fall, pain to mid and lower back. TECHNIQUE: 5 view(s) of the lumbar spine. Both obliques COMPARISON: None FINDINGS: No evidence of acute displaced fracture. Alignment is anatomic. The facets and intervertebral joints are within normal limits for age. Vertebral body heights are well-maintained. Surrounding soft tissues are unremarkable. IUD projects over the uterus IMPRESSION: No evidence of acute displaced fracture of the lumbar spine.
[2020-02-28 20:38] LABS: ABSOLUTE BASOPHILS # (AUTO) 0.1 10^3/uL (0.0-0.2); ABSOLUTE LYMPHOCYTES (AUTO) 2.3 10^3/uL (0.5-4.7); ABSOLUTE MONOCYTES (AUTO) 0.3 10^3/uL (0.1-1.4); ABSOLUTE NEUT (AUTO) 3.5 10^3/uL (1.7-8.2); BASOPHILS % (AUTO) 0.9 % (0-2); EOSINOPHILS % (AUTO) 0.6 % (0-6); HEMATOCRIT 36.4 % (36.0-47.0); HEMOGLOBIN 12.8 g/dL (12.0-15.5); LYMPHOCYTES % (AUTO) 36.6 % (13-45); MEAN CORPUSCULAR HGB CONC 35.1 g/dL (32.0-36.0); MEAN CORPUSCULAR VOLUME 94 fl (80-97); MONOCYTES % (AUTO) 5.6 % (3-13); PLATELET COUNT 263 10^3/uL (150-450); RED BLOOD COUNT 3.87 10^6/uL (3.72-5.28); RED CELL DISTRIBUTION WIDTH 13.4 % (11.5-14.0); SEGMENTED NEUTROPHILS % (AUTO) 56.3 % (42-78); TOTAL CELLS COUNTED % (AUTO) 100 %; WHITE BLOOD COUNT 6.2 10^3/uL (4.0-10.5)
--- NOTE | 2020-02-28 20:41 | RADIOLOGY REPORT (SQ) ---
INDICATION: confusion/GARDUNO x 2 weeks. COMPARISON: September 25, 2017 CORRELATION: None TECHNIQUE: Noncontrast spiral axial CT images were obtained from the skull base to vertex. This exam was performed according to our departmental dose-optimization program, which includes automated exposure control, adjustment of the mA and/or kV according to patient size and/or use of iterative reconstruction techniques. FINDINGS: There is no evidence of acute intracranial hemorrhage, midline shift, mass effect or mass lesion. Tovar-white differentiation is normal. There is no evidence of acute large territory infarct. Ventricles and extracerebral spaces are within normal limits, for age. The visualized paranasal sinuses are grossly clear. The orbits and eyeballs are unremarkable. The mastoid air cells are clear. Skull base and calvarium appear intact. IMPRESSION: No acute intracranial process is identified. The cause of the patient's neurologic symptoms is not identified on this examination.
[2020-02-28 20:47] LABS: APPEARANCE,URINE CLEAR; BILIRUBIN,URINE NEGATIVE (NEGATIVE); COLOR,URINE STRAW; GLUCOSE, URINE NEGATIVE (NEGATIVE); KETONES,URINE NEGATIVE (NEGATIVE); LEUKOCYTE ESTERASE,URINE NEGATIVE (NEGATIVE); NITRITE,URINE NEGATIVE (NEGATIVE); PROTEIN,URINE 100 mg/dL (NEGATIVE); URINE SPECIFIC GRAVITY 1.011; UROBILINOGEN,URINE NEGATIVE mg/dL (<2.0)
[2020-02-28 21:14] LABS: ALBUMIN 4.5 g/dL (3.5-5.0); ALKALINE PHOSPHATASE 38 U/L (38-126); ANION GAP 7 (5-19); ASPARTATE AMINO TRANSFERASE 27 U/L (14-36); BILIRUBIN,TOTAL 0.4 mg/dL (0.2-1.3); BLOOD UREA NITROGEN 26 mg/dL (7-20); CALCIUM 9.4 mg/dL (8.4-10.2); CARBON DIOXIDE 24 mmol/L (22-30); CHLORIDE 108 mmol/L (98-107); GLUCOSE 84 mg/dL (75-110); POTASSIUM 4.6 mmol/L (3.6-5.0); TOTAL PROTEIN 7.5 g/dL (6.3-8.2)
[2020-02-28] MEDS ORDERED: NORMAL SALINE 1000 ML 1,000 ML IV ONE (22:13)
--- NOTE | 2020-02-28 23:19 | ER Document Report ---
ED General - General Chief Complaint: Fall Injury Stated Complaint: BACK/LEG/ARM PAIN Primary Care Provider: SAMEER BANERJEE FNP-C [COMMUNITY BASED STAFF] - Follow up as needed TRAVEL OUTSIDE OF THE [place] IN LAST 30 DAYS: No - HPI Notes: 34-year-old female history of diabetes, hypertension, anxiety, bipolar, CKD presents with pain in lower back and left thigh after mechanical fall 2 days ago. Patient was on a ladder and walking down and her toe slipped and she fell 2 steps off of ladder onto the ground. Did not have significant pain right away but gradually has become worse over the past 2 days. Has taken Tylenol for pain without relief. Patient still ambulating at baseline . Patient also very stressed because periods of her parents are developing dementia and she feels that she has had difficulty with word finding recently. Has been having more frequent headaches intermittently recently but are not the worst headache of her life no sudden onset have been similar to headaches she has had intermittently throughout her lifetime and not of moderate severity. Patient denies any weakn ess/numbness, urinary retention, bowel incontinence, fever, anticoagulation, bleeding diatheses, cancer history, immune compromise, urinary symptoms, abdominal pain, neck pain, head injury, unexplained weight loss, change in vision/speech, severe headache, SI/HI, drug use, neck pain/stiffness - Related Data Allergies/Adverse Reactions: No Known Allergies Allergy (Verified 11/02/19 11:25) Home Medications: lantus, tulicity Past Medical History - General Information source: Patient - Social History Smoking Status: Current Every Day Smoker Family History: Reviewed & Not Pertinent Patient has homicidal ideation: No - Past Medical History Cardiac Medical History: Reports: Hx Hypertension - per EMR rollover Pulmonary Medical History: Reports: Hx Asthma Endocrine Medical History: Reports: Hx Diabetes Mellitus Type 2 - Per EMR Renal/ Medical History: Denies: Hx Peritoneal Dialysis Psychiatric Medical History: Reports: Hx Bipolar Disorder - per EMR, Hx Depression Past Surgical History: Reports: Hx Gynecologic Surgery - D&C, Hx Tonsillectomy - Immunizations Hx Diphtheria, Pertussis, Tetanus Vaccination: Yes Review of Systems - Review of Systems Notes: REVIEW OF SYSTEMS: CONSTITUTIONAL : Denies fever, chills, or sweats. EENT: Denies recent cold/sinus symptoms, denies throat pain CARDIOVASCULAR: Denies chest pain, NICANOR RESPIRATORY: Denies cough, denies shortness of breath. GASTROINTESTINAL: Denies abdominal pain, nausea/vomiting. GENITOURINARY: Denies difficulty urinating, painful urination. FEMALE GENITOURINARY: Denies abnormal vaginal bleeding, vaginal discharge. MUSCULOSKELETAL: Denies neck pain, +back pain. SKIN: Denies rash or skin lesions. HEMATOLOGIC : Denies easy bruising or bleeding. LYMPHATIC: Denies swollen, enlarged glands. NEUROLOGICAL: +headache, denies change in gait. PSYCHIATRIC: +anxiety +stress Physical Exam - Vital signs Vitals: Temp Pulse Resp BP Pulse Ox 98.1 F 89 18 158/88 H 99 02/28/20 19:25 02/28/20 19:25 02/28/20 19:25 02/28/20 19:25 02/28/20 19:25 - Notes Notes: PHYSICAL EXAMINATION: GENERAL: Well-appearing, well-nourished and in no acute distress. HEAD: Atraumatic, normocephalic. EYES: Pupils equal round and appropriate constriction, sclera anicteric, conjunctiva are normal. ENT: nares patent, moist mucous membranes. NECK: Normal range of motion, supple without lymphadenopathy LUNGS: Breath sounds clear to auscultation bilaterally and equal. No wheezes rales or rhonchi. HEART: Regular rate and rhythm without murmurs ABDOMEN: Soft, nontender, no guarding, no masses, no CVAT EXTREMITIES: Normal range of motion, no pitting or edema. No cyanosis. No abnormalities of thigh, normal inspection, no tenderness, no hip pain or tenderness full range of motion of all articulations, no masses BACK: Normal inspection, no midline spinal tenderness or deformity, increased bilateral lumbar paraspinal muscle tension, skin intact NEUROLOGICAL: Awake, alert, conversing appropriately, moves all extremities spontaneously, cranial nerves II through XII intact bilaterally, normal [id number] bilaterally, 5 out of 5 strength in all extremities, normal sensation in all extremities, negative Romberg, steady narrow-based non-ataxic gait, normal heel-to-toe gait PSYCH: Sad mood, normal affect. SKIN: Warm, Dry, normal turgor, no rashes or lesions noted. Course - Re-evaluation Re-evalutation: 02/29/20 00:33 No red flags on history or exam, CT obtained without any emergent findings, no neuro deficits with back pain and no infectious symptoms. Presentation not consistent with cord compression, conus medullaris syndrome, cauda equina. No risk factors or presentation symptoms consistent with epidural abscess or vertebral osteo. Obtain CT head for recent word finding difficulty, no emergent findings but had extensive discussion with patient regarding importance of following up with neurology for this symptom. Patient became very tearful during my evaluation, is upset that she feels like she has been struggling with many difficulties with health and her parents. I consoled patient and encourag ed her to be her own advocate in making sure that she follows up with the specialist outpatient and continues in her therapy to be able to find coping mechanisms for all of the stress she is under. Prescribed muscle relaxant without contraindications for psych history and renal insufficiency. Informed patient of her worsening creatinine and wanted to give IV bolus but patient refused. Patient says she was here for her back and that for her kidneys and dissected people talking about her kidneys. Encourage patient to increase her p.o. hydration and to follow-up with her inventory control planner which she already has scheduled. Gave patient extensive return to ED precautions which she demonstrated understanding of and gave patient a copy of all of her results to bring to her by her specialist for follow-up. - Vital Signs Vital signs: Temp Pulse Resp BP Pulse Ox 98.0 F 86 18 166/92 H 100 02/29/20 00:16 02/29/20 00:07 02/29/20 00:07 02/29/20 00:07 02/29/20 00:07 - Laboratory Result Diagrams: 02/28/20 20:18 02/28/20 20:18 Laboratory results interpreted by me: 02/28/20 02/28/20 20:18 20:18 Chloride 108 H BUN 26 H Creatinine 1.69 H Est GFR ( Amer) 42 L Est GFR (MDRD) Non-Af 34 L Urine Protein 100 H Discharge - Discharge Clinical Impression: Back injury Qualifiers: Encounter type: initial encounter Qualified Code(s): S39.92XA - Unspecified injury of lower back, initial encounter Condition: Good Disposition: HOME, SELF-CARE Instructions: Pain Control without Medication ([facility]) Additional Instructions: Low Back Pain Three out of every four people will have an episode of disabling back pain during their lifetime. Most commonly the pain is due to straining of the muscles and ligaments in the low back. Usual treatment includes: (1) Rest on a firm surface. Avoid lying on your stomach. (2) Ice pack the painful area. After a few days, gentle heat may be used intermittently to relax the area, or ice packs can be continued. (3) Medication may be needed -- muscle relaxers and antiinflammatory medicines are commonly used. (4) As the back improves, exercises are prescribed to strengthen the back and abdominal muscles. Your doctor will advise you on the proper care for your back at each stage in your recovery. You may be better in a few days -- or healing may take several weeks. If new symptoms of a "herniated disc" (radiation of pain, numbness, or tingling down the back of the leg or weakness in the leg) occur, you should be re-examined. Further testing may be necessary. Your kidney function has worsened since it was last checked. Follow-up with primary doctor, inventory control planner, and neurologist as discussed. Bring your test results when you go to follow-up with your doctors. Return to the emergency department immediately if you have trouble walking, weakness/numbness, trouble urinating or having bowel movements, fever, thoughts of suicide, or any other worsening or alarming symptoms. Do not drive while taking medication until you know how it affects you. Prescriptions: Lidocaine 1 each TP QHS PRN #8 adh..patch PRN Reason: Tizanidine HCl 2 mg PO Q8HP PRN #8 tablet PRN Reason: Referrals: SAMEER BANERJEE, RUSSC [COMMUNITY BASED STAFF] - Follow up as needed
[2020-02-29 00:07] VITALS: BP 166/92
== END 2020-02-29 00:16 | disposition home or self-care (01) ==
LOC: ER 19:22
DX: S39.92XA Unspecified injury of lower back, initial encounter (principal); M79.652 Pain in left thigh; W11.XXXA Fall on and from ladder, initial encounter; R29.818 Other symptoms and signs involving the nervous system; R51 Headache; I10 Essential (primary) hypertension; E11.9 Type 2 diabetes mellitus without complications; Z79.4 Long term (current) use of insulin
CPT/HCPCS: 99283; 36415; 82962; 84703; 85025; 80053; 81001; 72110; 72070; 70450; J3490

== ENCOUNTER → 2020-04-11 | Outpatient (CLI) | payer MEDICAID ==
--- NOTE | 2020-04-11 12:54 | RADIOLOGY REPORT (SQ) ---
EXAM DESCRIPTION: U/S RETROPERITON (RENAL/AORTA) IMAGES COMPLETED DATE/TIME: 04/11/2020 11:34 am REASON FOR STUDY: CKD III (N18.3) N18.3 CHRONIC KIDNEY DISEASE, STAGE 3 (MODERATE) COMPARISON: None. TECHNIQUE: Dynamic and static grayscale images acquired of the kidneys and bladder and recorded on P ACS. Additional selected color Doppler and spectral images recorded. LIMITATIONS: None. FINDINGS: RIGHT KIDNEY: Normal size measuring 9.8 cm. Normal echogenicity. No solid or suspicious m asses. No hydronephrosis. No calcifications. LEFT KIDNEY: Normal size measuring 10.5 cm. Normal echogenicity. No solid or suspicious masses. No h ydronephrosis. No calcifications. BLADDER: No masses. OTHER FINDINGS: No other significant finding. IMPRESSION: Unremarkable renal ultrasound. No hydronephrosis. TECHNICAL DOCUMENTATION: JOB ID: [id number] 2010 [employer]- All Rights Reserved Reading location - IP/workstation name: [email or web address]
== END ==
LOC: RAD 10:43
PROVIDERS: ATTEND Internal Medicine Nephrology
DX: N18.3 Chronic kidney disease, stage 3 (moderate) (principal)
CPT/HCPCS: 76770

== ENCOUNTER → 2020-06-19 | Outpatient (CLI) | payer MEDICAID ==
--- NOTE | 2020-06-19 11:49 | NEURO WORKBENCH EEG REPORT ---
EEG Report Patient: Lindy Lisa ID: [id number] Referring Doctor: Nestor Nunez MD DOS: 06/19/2020 Medications: iron, motrin, probiotic, atorvastatin, carvedilol, xanax, buspirone, levemir, novolog, biotin, lipiromide, zyrtec, acyclovir, fenofibrate, lisinopril/HCTZ, doxepin, vitamin D, proair History This is a 34 year old right handed female with a history of asthma, diabetes, hypertension with an event of disorientation. This EEG was requested for headache and possible seizure. EEG Interpretation This EEG was recorded in the awake, drowsy, and sleep states. The awake EEG is characterized by a well-organized background with a well-developed and reactive posterior dominant rhythm of 9 Hz. The remainder of the background was characterized by a combination of alpha with some beta frequencies. Theta activity was noted, most consistent with drowsiness. Mu was present. Drowsiness was characterized by slowing of the background rhythms. Vertex waves were seen in the midline head regions as were sleep spindles briefly. Photic stimulation resulted in a mild driving response. There were no epileptiform abnormalities. The EKG showed a regular rhythm. EEG Classification * Normal EEG Impression This EEG is within normal limits for age. INTERPRETING NEUROLOGIST: Paige Holley MD, [facility] Board Certified in Neurology, with special qualification in Child Neurology, and in Clinical Neurophysiology [facility]
== END ==
LOC: NEURO 07:35
PROVIDERS: ATTEND Pediatrics
DX: R51 Headache (principal); R41.0 Disorientation, unspecified; R26.89 Other abnormalities of gait and mobility; F41.9 Anxiety disorder, unspecified
CPT/HCPCS: 95819